=== PATIENT | female | born 2000 | race Caucasian/White ===

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

== ENCOUNTER 2021-02-28 12:05 | Outpatient (CLI) | payer MEDICAID ==
[~2021-02-28] VITALS: Ht 157.5 cm; Wt 102.6 kg
[2021-02-28 12:40] LABS: BILIRUBIN,URINE NEGATIVE (NEGATIVE); CLARITY,URINE CLEAR; COLOR,URINE YELLOW; GLUCOSE, URINE (UA) NEGATIVE (NEGATIVE); KETONES,URINE NEGATIVE (NEGATIVE); LEUKOCYTE ESTERASE ,URINE NEGATIVE (NEGATIVE); NITRITE,URINE NEGATIVE (NEGATIVE); PROTEIN,URINE NEGATIVE (NEGATIVE)
[2021-02-28 12:47] LABS: BACTERIA,URINE FEW /HPF; WBC,URINE 0-2 /HPF
[2021-02-28] MEDS ORDERED: NS IV 1000 ML 0 ML ONE (13:09)
[2021-02-28 13:10] VITALS: BP 121/74
[2021-02-28] MEDS ORDERED: NS IV 1000 ML 1,000 ML IV SCH (13:15)
[2021-02-28 13:40] LABS: BASOPHILS % (AUTO) 0 % (0-10); EOSINOPHILS # (AUTO) 0.1 10^3/uL (0.0-0.3); EOSINOPHILS % (AUTO) 2 % (0-10); HEMATOCRIT 35 % (35-52); HEMOGLOBIN 11.1 g/dL (11.5-16.0); LYMPHOCYTES # (AUTO) 1.5 10^3/uL (1.0-4.0); LYMPHOCYTES % (AUTO) 18 % (12-44); MEAN CORPUSCULAR HEMOGLOBIN 27 pg (25-34); MEAN CORPUSCULAR HGB CONC 32 g/dL (32-36); MEAN CORPUSCULAR VOLUME 82 fL (80-99); MEAN PLATELET VOLUME 10.7 fL (9.0-12.2); MONOCYTES # (AUTO) 0.6 10^3/uL (0.0-1.0); MONOCYTES % (AUTO) 7 % (0-12); NEUTROPHILS # (AUTO) 5.9 10^3/uL (1.8-7.8); NEUTROPHILS % (AUTO) 73 % (42-75); PLATELET COUNT 330 10^3/uL (130-400); WHITE BLOOD COUNT 8.1 10^3/uL (4.3-11.0)
[2021-02-28 14:02] LABS: ALANINE AMINOTRANSFERASE 6 U/L (0-55); ALBUMIN 3.3 GM/DL (3.2-4.5); ALKALINE PHOSPHATASE 102 U/L (40-136); BILIRUBIN,TOTAL 0.2 MG/DL (0.1-1.0); BUN/CREATININE RATIO 7; CALCIUM 9.2 MG/DL (8.5-10.1); CARBON DIOXIDE 19 MMOL/L (21-32); CHLORIDE 106 MMOL/L (98-107); CREATININE SERUM 0.55 MG/DL (0.60-1.30); GFR ESTIMATED > 60; GLUCOSE 91 MG/DL (70-105); SODIUM 135 MMOL/L (135-145); TOTAL PROTEIN 7.1 GM/DL (6.4-8.2)
[2021-02-28 15:10] VITALS: BP 120/69
[2021-02-28] MEDS ORDERED: PREN-8 PO (15:50)
[2021-02-28] MEDS ORDERED: FERR-65 PO (15:50)
[2021-02-28] MEDS ORDERED: NS IV 1000 ML 1,000 ML ONE (19:09)
[2021-02-28 19:13] VITALS: BP 130/64
--- NOTE | 2021-03-03 08:44 | Physician Query-Final Dx ---
BILL LYON 03/03/21 0844: Clinic Account Progress/Dx Physician Query: Please give diagnosis Please include # weeks gestation Date of Service Feb 28, 2021 at 12:05 APRIS GUERIN DO 03/04/21 1526: Clinic Account Progress/Dx DIAGNOSIS: Diagnosis 30 week IUP Gastroenteritis BILL LYON March 03, 2021 08:44 PARIS GUERIN DO March 04, 2021 15:26
== END 2021-02-28 15:58 | disposition home or self-care (01) ==
LOC: WSo 12:05 → LDRP 12:07 → WSo 15:58
PROVIDERS: ATTEND Obstetrics & Gynecology
DX: Z34.93 Encounter for supervision of normal pregnancy, unspecified, third trimester (principal); Z3A.30 30 weeks gestation of pregnancy
CPT/HCPCS: 36415; 80053; 81000; 85025; 96360; 99213

== ENCOUNTER 2021-03-21 17:14 | Outpatient (CLI) | payer MEDICAID ==
[~2021-03-21] VITALS: Ht 157.5 cm; Wt 106.9 kg
[~2021-03-21 17:14] MED LIST changes: +FERR-65 PO; +PREN-8 PO
[2021-03-21 17:50] VITALS: BP 129/71
[2021-03-21 18:02] LABS: BILIRUBIN,URINE NEGATIVE (NEGATIVE); CLARITY,URINE CLEAR; COLOR,URINE YELLOW; GLUCOSE, URINE (UA) NEGATIVE (NEGATIVE); KETONES,URINE NEGATIVE (NEGATIVE); LEUKOCYTE ESTERASE ,URINE NEGATIVE (NEGATIVE); NITRITE,URINE NEGATIVE (NEGATIVE); PROTEIN,URINE NEGATIVE (NEGATIVE)
[2021-03-21 18:09] LABS: BACTERIA,URINE TRACE /HPF
[2021-03-21 18:20] LABS: URINE CREATININE FOR RATIO 32 MG/DL (30-125); URINE PROTEIN FOR RATIO ONLY < 6 MG/DL (6-12)
[2021-03-21 18:33] VITALS: BP 129/71
[2021-03-21 18:49] LABS: BASOPHILS % (AUTO) 0 % (0-10); EOSINOPHILS # (AUTO) 0.1 10^3/uL (0.0-0.3); EOSINOPHILS % (AUTO) 1 % (0-10); HEMATOCRIT 31 % (35-52); LYMPHOCYTES # (AUTO) 1.5 10^3/uL (1.0-4.0); LYMPHOCYTES % (AUTO) 17 % (12-44); MEAN CORPUSCULAR HEMOGLOBIN 26 pg (25-34); MEAN CORPUSCULAR HGB CONC 32 g/dL (32-36); MEAN CORPUSCULAR VOLUME 81 fL (80-99); MEAN PLATELET VOLUME 11.1 fL (9.0-12.2); MONOCYTES # (AUTO) 0.6 10^3/uL (0.0-1.0); MONOCYTES % (AUTO) 7 % (0-12); NEUTROPHILS # (AUTO) 6.9 10^3/uL (1.8-7.8); NEUTROPHILS % (AUTO) 75 % (42-75); PLATELET COUNT 250 10^3/uL (130-400); WHITE BLOOD COUNT 9.3 10^3/uL (4.3-11.0)
[2021-03-21 19:01] LABS: ALBUMIN 3.3 GM/DL (3.2-4.5); CHLORIDE 108 MMOL/L (98-107); POTASSIUM 3.7 MMOL/L (3.6-5.0); SODIUM 137 MMOL/L (135-145)
[2021-03-21 19:02] LABS: CALCIUM 9.3 MG/DL (8.5-10.1)
[2021-03-21 19:03] LABS: GLUCOSE 76 MG/DL (70-105); TOTAL PROTEIN 6.6 GM/DL (6.4-8.2)
[2021-03-21 19:04] LABS: CARBON DIOXIDE 17 MMOL/L (21-32)
[2021-03-21 19:05] LABS: BILIRUBIN,TOTAL 0.3 MG/DL (0.1-1.0)
[2021-03-21 19:07] LABS: ALKALINE PHOSPHATASE 114 U/L (40-136); CREATININE SERUM 0.57 MG/DL (0.60-1.30); GFR ESTIMATED > 60
[2021-03-21 19:08] LABS: BUN/CREATININE RATIO 12
[2021-03-21 19:10] LABS: ALANINE AMINOTRANSFERASE 6 U/L (0-55); URIC ACID 3.4 MG/DL (2.6-7.2)
[2021-03-21 19:13] LABS: BAND NEUTROPHILS 0 %; BASOPHILS % (MANUAL) 0 %; EOSINOPHILS % (MANUAL) 2 %; LYMPHOCYTES % (MANUAL) 20 %; MONOCYTES % (MANUAL) 1 %; NEUTROPHILS % (MANUAL) 77 %; RBC MORPH NORMAL
[2021-03-21 19:40] VITALS: BP 115/68
--- NOTE | 2021-03-24 08:01 | Physician Query-Final Dx ---
BILL LYON 03/24/21 0801: Clinic Account Progress/Dx Physician Query: Please give diagnosis Please include # weeks gestation Date of Service March 21, 2021 at 17:14 YURIY CRUZ MD 03/24/21 1017: Clinic Account Progress/Dx DIAGNOSIS: Diagnosis False labor at 33 weeks gestation BILL LYON March 24, 2021 08:01 YURIY CRUZ MD March 24, 2021 10:17
== END 2021-03-21 19:50 | disposition home or self-care (01) ==
LOC: WSo 17:14 → LDRP 17:15 → WSo 19:50
PROVIDERS: ATTEND Obstetrics & Gynecology
DX: O47.03 False labor before 37 completed weeks of gestation, third trimester (principal); Z3A.33 33 weeks gestation of pregnancy
CPT/HCPCS: 80053; 81000; 82570; 83615; 84156; 84550; 85007; 85027; G0463; 36415; 99213

== ENCOUNTER 2021-03-30 21:03 | Emergency (ER) | payer MEDICAID ==
[~2021-03-30] VITALS: Ht 158 cm; Wt 106.7 kg
[2021-03-30 21:08] VITALS: BP 135/81
[2021-03-30] MEDS ORDERED: GLYB1.253 (21:13)
--- NOTE | 2021-03-30 21:37 | ED General ---
General Chief Complaint: Dental Problems/Pain Stated Complaint: RIGHT SIDE FACIAL PAIN Nursing Triage Note: right sided dental pain x4 days after filling fell out. Nursing Sepsis Screen: No Definite Risk Source of Information: Patient Exam Limitations: No Limitations (MARIANA ROY STUDENT) History of Present Illness Date Seen by Provider: March 30, 2021 Time Seen by Provider: 21:15 Initial Comments Pt presents to ED via POV with complaint of tooth pain. She states that it began 4 days ago, originates at the 2nd upper molar, rates it 10/10, throbbing in character, and says that the pain has been progressively moving up the side of her face since it began. She states her filling in that tooth fell out a year ago and hasn't followed up with her dentist yet, but is planning on contacting him next week. She has tried Orajel and took 1500mg Tylenol prior to arrival with no relief. She is [address]mos [address] sees Dr. Navas for obstetric care. She denies other symptoms of chest pain, SOB, fevers, chills, N/V. Timing/Duration: 3-4 Days Severity: Moderate Modifying Factors: improves with Medication (Orajel and Tylenol with no relief) Associated Systoms: No Chest Pain, No Fever/Chills, No Headaches, No Terry sea/Vomiting, No Shortness of Air (MARIANA ROY STUDENT) Allergies and Home Medications Allergies Coded Allergies: Penicillins (Verified Allergy, Severe, Anaphylaxis, 03/21/21) Patient Home Medication List Home Medication List Reviewed: Yes (MARIANA ROY STUDENT) Review of Systems Review of Systems Constitutional: No chills, No fever EENTM: dental problems (pain in R maxilla that radiates up the side of her face); No hearing loss, No vision loss Respiratory: No cough, No short of breath Cardiovascular: No chest pain, No edema, No palpitations Gastrointestinal: No abdominal pain; constipation; No diarrhea, No nausea, No vomiting Genitourinary: No dysuria, No hematuria : Yes (8mos gestation ) Musculoskeletal: No back pain, No joint pain, No muscle pain Skin: No change in color, No rash Psychiatric/Neurological: Denies Headache, Denies Numbness, Denies Paresthesia, Denies Tingling, Denies Weakness (MARIANA ROY) All Other Systems Reviewed Negative Unless Noted: Yes (MARIANA ROY) Past Mdliiuu-Djhtch-Gilrub Hx Patient Social History Alcohol Use: Denies Use Drug of Choice: denies Smoking Status: Never a Smoker 2nd Hand Smoke Exposure: No Recent Infectious Disease Expo: No Recent Hopitalizations: No Alcohol Use?: No (MARIANA ROY) Immunizations Up To Date Tetanus Booster (TDap): Unknown PED Vaccines UTD: Yes (MARIANA ROY) Seasonal Allergies Seasonal Allergies: No (MARIANA ROY) Past Medical History Surgeries: No Respiratory: No Cardiac: No Neurological: No : Yes Last Menstrual Period: Jul 20, 2020 Genitourinary: No Gastrointestinal: No Musculoskeletal: No Endocrine: No HEENT: No Cancer: No Psychosocial: Yes PTSD Integumentary: No Blood Disorders: No (MARIANA ROY) Family Medical History Cancer (MARIANA ROY) Physical Exam Vital Signs Vital Signs - First Documented 03/30/21 21:08 Temp 36.6 Pulse 88 Resp 18 B/P (MAP) 135/81 (99) Pulse Ox 99 O2 Delivery Room Air (GARY KEANE) Vital Signs Capillary Refill : Less Than 3 Seconds (MARIANA ROY) Height, Weight, BMI Height: 5'1.00" Weight: 170lbs. oz. 77.928868ve; 42.00 BMI Method:Stated General Appearance: No Apparent Distress, WD/WN Eyes: Bilateral Eye Normal Inspection, Bilateral Eye PERRL, Bilateral Eye EOMI HEENT: PERRL/EOMI, TMs Normal, Normal ENT Inspection, Pharynx Normal, Moist Mucous Membranes Neck: Full Range of Motion, Normal Inspection, Non Tender, Supple Respiratory: Chest Non Tender, Lungs Clear, Normal Breath Sounds, No Accessory Muscle Use, No Respiratory Distress Cardiovascular: Regular Rate, Rhythm, No Edema, Normal Peripheral Pulses Gastrointestinal: Normal Bowel Sounds, Non Tender, Soft Rectal: Deferred Back: Normal Inspection, No CVA Tenderness, No Vertebral Tenderness Extremity: Normal Capillary Refill, Normal Inspection, Normal Range of Motion, Non Tender Neurologic/Psychiatric: Alert, Oriented x3, No Motor/Sensory Deficits, Normal Mood/Affect Skin: Normal Color, Warm/Dry Lymphatic: No Adenopathy (MARIANA ROY STUDENT) Progress/Results/Core Measures Suspected Sepsis Recent Fever Within 48 Hours: No Infection Criteria Present: None New/Unexplained Altered Menta: No Sepsis Screen: No Definite Risk SIRS Temperature: Pulse: 88 Respiratory Rate: 18 Blood Pressure 135 /81 Mean: 99 (MARIANA ROY STUDENT) Results/Orders My Orders Orders - GARY KEANE Lidocaine 2% Viscous 15 Ml (Xylocaine Vi (03/30/21 21:45) Clindamycin Capsule (Cleocin Capsule) (03/30/21 21:45) (GARY KEANE) Medications Given in ED Current Medications Medications Dose Ordered Sig/Mikael Route Start Time Stop Time Status Last Admin Dose Admin Clindamycin HCl 450 mg ONCE ONCE PO 03/30/21 21:45 03/30/21 21:46 03/30/21 21:42 450 MG Lidocaine HCl 5 ml ONCE ONCE PO 03/30/21 21:45 03/30/21 21:46 03/30/21 21:42 5 ML (GARY KEANE) Vital Signs/I&O 03/30/21 21:08 Temp 36.6 Pulse 88 Resp 18 B/P (MAP) 135/81 (99) Pulse Ox 99 O2 Delivery Room Air (GARY KEANE) Vital Signs/I&O Capillary Refill : Less Than 3 Seconds (MARIANA ROY STUDENT) Blood Pressure Mean: 99 Progress Note : Time: 21:46 Progress Note I attest that I saw this patient alongside the medical student and agree with his documented history, physical exam and review of systems except as otherwise noted. Clindamycin and viscous lidocaine. Counseled on appropriate use of Tylenol. Heat and ice. Patient has already reached out to her dentist and we have encouraged her to keep trying to get in with them. (GARY KEANE) Departure Impression Primary Impression: Dental abscess Additional Impression: Qualified Codes: Z34.90 - Encounter for supervision of normal , unspecified, unspecified trimester Disposition: 01 HOME, SELF-CARE Condition: Stable Departure-Patient Inst. Decision time for Depature: 21:47 (GARY KEANE) Referrals: [facility][1[facility] (PCP/Family) Primary Care Physician Patient Instructions: Tooth Abscess (DC) Add. Discharge Instructions: Heat and ice as necessary for pain. Stick to a liquid diet. Tylenol 1000 mg every 8 hours as necessary for pain. Clindamycin 3 capsules 3 times a day with food for the next week. I recommend probiotics 1 capsule twice a day to prevent the diarrhea sometimes associated with antibiotics. Continue to work on getting in with your dentist. 5 mL of viscous lidocaine on gauze applied directly to the tooth every 4-6 hours as necessary for pain All discharge instructions reviewed with patient and/or family. Voiced understanding. Scripts [viscous lidocaine 2%] 2% No Conflict Check 5 ML DT Q4H PRN for PAIN-BREAKTHROUGH, #100 ML 0 Refills Prov: GARY KEANE 03/30/21 Clindamycin HCl (Clindamycin HCl) 150 Mg Capsule 450 MG PO TID for 7 Days, #63 CAP 0 Refills Prov: GARY KEANE 03/30/21 Work/School Note: Work Release Form Date Seen in the Emergency Department: March 30, 2021 Return to Work: March 31, 2021 Restrictions: No Restrictions MARIANA ROY MED STUDENT March 30, 2021 21:37 GARY KEANE March 30, 2021 21:50
[2021-03-30] MEDS ORDERED: LIDOCAINE 2% VISCOUS 15 ML UDC PO ONE (21:45)
[2021-03-30] MEDS ORDERED: CLINDAMYCIN 150 MG (CLEOCIN) CAP PO ONE (21:45)
[2021-03-30] MEDS ORDERED: CLIN150C18 PO (21:50)
[2021-03-30] MEDS ORDERED: viscous lidocaine 2% DT (21:50)
== END 2021-03-30 21:57 | disposition home or self-care (01) ==
LOC: EDUNIT# 21:03 → ER 21:05
DX: O99.613 Diseases of the digestive system complicating pregnancy, third trimester (principal); K04.7 Periapical abscess without sinus; Z3A.37 37 weeks gestation of pregnancy
CPT/HCPCS: 99283

== ENCOUNTER → 2021-04-11 | Outpatient (CLI) | payer MEDICAID ==
[~2021-04-11] MED LIST changes: +CLIN150C18 PO; +GLYB1.253; +[UNRECOGNIZED DRUG - OTHER] PO; +antibiotic PO; +viscous lidocaine 2% DT
--- NOTE | 2021-04-11 16:17 | Diagnostic Imaging Report ---
INDICATION: Gestational diabetes. TECHNIQUE: Multiple real-time grayscale images were obtained over the gravid uterus. COMPARISON: 12/26/2020 FINDINGS: A single live intrauterine fetus seen measuring 36 weeks 4 days in size with heart rate 156 bpm. EDC was 05/05/2021, which is within a few days of expected from previous examination. The fetus is in cephalic presentation. Placenta is anterior with no evidence of previa. Amniotic fluid index is normal at 12.1 cm. A full survey was not performed at this time. Maternal adnexa could not be visualized. Sonographic estimate age: 36 weeks 4 days. Sonographic estimated date of delivery: 05/05/2021. heart rate: 156 beats per minute. number: 1 of 1. biophysical profile was also performed. The fetus scored 2 out of 2 and movement and posture and tone and amniotic fluid volume. Fetus scored 0 of 2 in breathing. IMPRESSION: Single live intrauterine fetus measuring 36 weeks 4 days in size with appropriate growth compared to the previous study. There was no detectable abnormality. biophysical profile score was 6 out of 8, suggest follow-up as clinically warranted. Dictated by: Dictated on workstation # [id number]
== END ==
LOC: RAD 13:30
PROVIDERS: ATTEND Nurse Practitioner Women's Health
DX: O24.419 Gestational diabetes mellitus in pregnancy, unspecified control (principal); Z3A.36 36 weeks gestation of pregnancy
CPT/HCPCS: 76805; 76819

== ENCOUNTER → 2021-04-16 | Outpatient (CLI) | payer MEDICAID | LOC: LABNPT 09:41 | PROVIDERS: ATTEND Obstetrics & Gynecology | DX: O13.9 Gestational [pregnancy-induced] hypertension without significant proteinuria, unspecified trimester (principal); Z3A.00 Weeks of gestation of pregnancy not specified | CPT/HCPCS: 82570; 84156 ==

== ENCOUNTER 2021-04-19 17:14 | Outpatient (CLI) | payer MEDICAID ==
[~2021-04-19] VITALS: Ht 157.5 cm; Wt 107.1 kg
[2021-04-19 17:31] VITALS: BP 128/89
[2021-04-19 17:45] VITALS: BP 128/89
[2021-04-19 17:46] LABS: BILIRUBIN,URINE NEGATIVE (NEGATIVE); CLARITY,URINE CLEAR; COLOR,URINE YELLOW; GLUCOSE, URINE (UA) NEGATIVE (NEGATIVE); KETONES,URINE NEGATIVE (NEGATIVE); LEUKOCYTE ESTERASE ,URINE NEGATIVE (NEGATIVE); NITRITE,URINE NEGATIVE (NEGATIVE); PROTEIN,URINE NEGATIVE (NEGATIVE)
[2021-04-19 17:52] VITALS: BP 130/76
[2021-04-19 17:55] VITALS: BP 128/89
[2021-04-19 18:00] LABS: BACTERIA,URINE TRACE /HPF; SQUAMOUS EPITHELIAL CELL,UR 0-2 /HPF
[2021-04-19 18:12] VITALS: BP 120/89
[2021-04-19 18:32] VITALS: BP 120/89
--- NOTE | 2021-04-21 07:58 | Physician Query-Final Dx ---
Clinic Account Progress/Dx Physician Query: Please give diagnosis Please include # weeks gestation Date of Service Apr 19, 2021 at 17:14 BILL LYON Apr 21, 2021 07:58
== END 2021-04-19 18:32 | disposition home or self-care (01) ==
LOC: WSo 17:14 → LDRP 17:14 → WSo 18:32
PROVIDERS: ATTEND Obstetrics & Gynecology
DX: Z34.93 Encounter for supervision of normal pregnancy, unspecified, third trimester (principal); Z3A.38 38 weeks gestation of pregnancy
CPT/HCPCS: 81000

== ENCOUNTER 2021-04-23 06:21 | Inpatient (IN) | payer MEDICAID ==
[~2021-04-23] VITALS: Ht 157.5 cm; Wt 109.5 kg
[2021-04-23] VITALS (51 sets, daily range): BP systolic 34–160; BP diastolic 55–113
[2021-04-23] MEDS ORDERED: D5 LR IV SOLUTION 1,000 ML IV SCH (06:45)
--- NOTE | 2021-04-23 07:14 | History & Physical-OB/GYN ---
LUIS A SANTORO MED STUDENT 04/23/21 7:14am: OB - Chief Complaint & HPI Date/Time Date of Admission: Date of Admission: Apr 23, 2021 at 06:21 Time Seen by a Provider: 06:50 Chief Complaint/History OB-Reason for Admission/Chief: Induction of Labor Hx : 1 Hx Para: 0 Hx Last Menstrual Period: 07/20/2020 Estimated Date of Conception: 05/03/2021 Expected Date of Delivery: Apr 23, 2021 Gestational Age in Weeks: 38 Gestational Age in Days: 4 Indication for induction: medical complication (A2 GDM, uncontrolled) History of Labs A+, antibody negative, HIV nonreactive, hepatitis B negative, group B strep negative, rubella immune. Initial Hgb 12.6 with followup 10.8. Allergies and Home Medications Allergies Coded Allergies: Penicillins (Verified Allergy, Severe, Anaphylaxis, 03/21/21) Home Medications [diabetic medicine] , PO DAILY, (Reported) Patient Home Medication List Home Medication List Reviewed: Yes OB - History Hx of Present Care: Yes Ultrasounds: Normal mid trimester US Obstetrical Complications: Gestational Diabetes Medical Complications: None Information Induced Hypertension: No Maternal Gestational Diabetes: Yes Hemorrhage: No Obstetrical History Hx : 1 Hx Para: 0 Patient Past Medical History GDM Social History/Family History Alcohol Use: Denies Use Recreational Drug Use: No Smoking Cessation: Never smoker 2nd Hand Smoke Exposure: No Significant Family Hx + HTN mom + DM mom + pre-eclampsia mom and maternal aunt + goldenhar syndrome brother Immunizations Hepatitis A: No Hepatitis B: No Tetanus Booster (TDap): Unknown Rubella: immune RPR/VDRL: Negative GBS Status: Negative HBsAG: Negative OB - Admission Exam Physical Exam Vitals: Vital Signs 04/23/21 06:51 Temp 36.7 Pulse 89 Resp 18 Pulse Ox 98 O2 Delivery Room Air HEENT: NCAT Heart: Rhythm Normal Lungs: Clear Abdomen: Gravid Extremities: Edema Membranes: Intact Heart Rate: 130's Accelerations: Accelerations Present Decelerations: No Decelerations Certified Medical Asst Variability: Average (6-25) Contractions on Admission: None OB - Assessment/Plan/Diagnosis Assessment Assessment: induction of labor Admission Dx A2 GDM, uncontrolled Admission Status: Inpatient Order (span 2 midnights) Reason for Inpatient Admission: IOL Plan Plan: Induction Induction Method: per Pitocin Protocol Copy Copies To 1: PARIS NAVAS DO Supervisory-Addendum Brief Verification & Attestation Participated in pt care: history, physical Personally performed: exam, history Care discussed with: Medical Student Procedures: n/a Luis A Santoro, PARIS CHRISTIANSEN DO 04/23/21 2:15pm: OB - Chief Complaint & HPI Date/Time Date seen by a Provider: Apr 23, 2021 Allergies and Home Medications Allergies Coded Allergies: Penicillins (Verified Allergy, Severe, Anaphylaxis, 03/21/21) Home Medications [diabetic medicine] , PO DAILY, (Reported) OB - Assessment/Plan/Diagnosis Assessment Admission Dx 20 yo @ 38 weeks GDMA2 Teen GBS neg Copy Copies To 1: PARIS NAVAS DO Supervisory-Addendum Brief Verification & Attestation Verification and Attestation of Medical Student E/M Service A medical student performed and documented this service in my presence. I revi ewed and verified all information documented by the medical student and made modifications to such information, when appropriate. I personally performed the physical exam and medical decision making. Paris Navas, Apr 23, 2021,14:15 LUIS A SANTORO MED STUDENT Apr 23, 2021 7:14 am PARIS NAVAS DO Apr 23, 2021 2:15 pm
[2021-04-23 07:18] LABS: BASOPHILS % (AUTO) 0 % (0-10); EOSINOPHILS # (AUTO) 0.2 10^3/uL (0.0-0.3); EOSINOPHILS % (AUTO) 2 % (0-10); HEMATOCRIT 32 % (35-52); HEMOGLOBIN 9.9 g/dL (11.5-16.0); LYMPHOCYTES # (AUTO) 1.7 10^3/uL (1.0-4.0); LYMPHOCYTES % (AUTO) 19 % (12-44); MEAN CORPUSCULAR HEMOGLOBIN 25 pg (25-34); MEAN CORPUSCULAR HGB CONC 31 g/dL (32-36); MEAN CORPUSCULAR VOLUME 81 fL (80-99); MEAN PLATELET VOLUME 11.8 fL (9.0-12.2); MONOCYTES # (AUTO) 0.6 10^3/uL (0.0-1.0); MONOCYTES % (AUTO) 7 % (0-12); NEUTROPHILS # (AUTO) 6.3 10^3/uL (1.8-7.8); NEUTROPHILS % (AUTO) 71 % (42-75); PLATELET COUNT 289 10^3/uL (130-400); WHITE BLOOD COUNT 8.8 10^3/uL (4.3-11.0)
[2021-04-23] MEDS ORDERED: OXYTOCIN PRE-MIX DRIP 500 ML IV ONE (07:38)
[2021-04-23] MEDS: NS IV 1000 ML 1,000 ML IV SCH ×3 (07:45→20:51)
[2021-04-23 07:51] LABS: CARBON DIOXIDE 17 MMOL/L (21-32); CHLORIDE 108 MMOL/L (98-107); POTASSIUM 4.1 MMOL/L (3.6-5.0); SODIUM 135 MMOL/L (135-145)
[2021-04-23 07:52] LABS: ALANINE AMINOTRANSFERASE 7 U/L (0-55); ALBUMIN 3.1 GM/DL (3.2-4.5); ALKALINE PHOSPHATASE 191 U/L (40-136); BILIRUBIN,TOTAL 0.2 MG/DL (0.1-1.0); BUN/CREATININE RATIO 12; CALCIUM 8.9 MG/DL (8.5-10.1); GFR ESTIMATED > 60; GLUCOSE 96 MG/DL (70-105); TOTAL PROTEIN 6.4 GM/DL (6.4-8.2)
[2021-04-23] MEDS ORDERED: OXYTOCIN PRE-MIX DRIP 500 ML IV SCH (08:00)
[2021-04-23] MEDS ORDERED: CALCIUM CARBONATE 500 MG (TUMS) TAB.CHEW PO PRN (08:00)
[2021-04-23] MEDS ORDERED: HYDROmorphone 2 MG/ML VIAL (DILAUDID) IV ONE ×2 (10:00→11:30)
[2021-04-23] MEDS ORDERED: fentaNYL 2 mcg/ml BUPIVA 0.125 100 ML ONE (11:24)
[2021-04-23] MEDS ORDERED: HYDROmorphone 2 MG/ML VIAL (DILAUDID) ONE (11:30)
[2021-04-23] MEDS ORDERED: fentaNYL INJ 100 MCG/2 ML AMP ONE (12:21)
[2021-04-23] MEDS ORDERED: ONDANSETRON 4 MG/2 ML (SDV) Z0FRAN IV PRN (12:30)
[2021-04-23] MEDS ORDERED: EPIDURAL (fentaNYL 2 MCG/ML BUPIVA 0.125%)100 ML BAG EPI PRN (12:30)
[2021-04-23] MEDS ORDERED: NALOXONE 0.4 MG/ML 1 ML (NARCAN) VIAL IV PRN ×2 (12:30)
[2021-04-23] MEDS ORDERED: METOCLOPRAMIDE INJ 10 MG/2 ML (REGLAN) IV PRN (12:30)
[2021-04-23] MEDS ORDERED: LACTATED RINGERS 1,000 ML IV ONE (12:30)
[2021-04-23] MEDS ORDERED: diphenhydrAMINE 50 MG/ML INJ (BENADRYL) IV PRN (12:30)
[2021-04-23] MEDS ORDERED: LIDOCAINE/EPI 2% 1:200,00 (XYLOCAINE) 20 ML VIAL ONE (15:40)
[2021-04-23] MEDS: OXYTOCIN PRE-MIX DRIP 500 ML IV SCH ×2 (16:45→20:51)
[2021-04-23] MEDS ORDERED: BENZOCAINE/MENTHOL (DERMOPLAST) 56 ML CAN TP PRN (17:30)
[2021-04-23] MEDS ORDERED: TETANUS,DIPTH,PERTUSS P/F (BOOSTRIX) 0.5 ML VIAL IM ONE (17:30)
[2021-04-23] MEDS ORDERED: HYDROcodone/APAP 5 MG/325 MG (LORTAB) TAB PO PRN (17:30)
[2021-04-23] MEDS ORDERED: WITCH HAZEL(TUCKS) 40 EA JAR TOP PRN (17:30)
[2021-04-23] MEDS ORDERED: MEASLES,MUMPS,RUBELLA 1 EA INJ SQ ONE (17:30)
[2021-04-23] MEDS ORDERED: DIBUCAINE 1% OINTMENT 30 GM TUBE TOP PRN (17:30)
--- NOTE | 2021-04-23 18:01 | OB Labor & Delivery Record ---
L&D History Date of Service Date of Service: Apr 23, 2021 History Expected Date of Delivery: May 03, 2021 Gestational Age in Weeks: 38 Hx : 1 Hx Para: 0 Complications Events: Gestational Diabetes Operative Indications (Cesarea: N/A-Vaginal Delivery Intrapartal Events: None L&D Stage1 Stage One Onset of Labor - Date: Apr 23, 2021 Monitors and Tracing Monitor Mode: External Heart Rate: 140 Monitor Accelerations: Uniform Monitor Decelerations: Variable Station: 0 Usp Variability: Average (6-10) Short Term Variability: Present Presentation: Vertex Vital Signs VS - Last 72 Hours, by Label 04/23/21 04/23/21 04/23/21 04/23/21 06:51 07:50 08:05 08:20 Temp 36.7 36.8 Pulse 89 85 90 85 Resp 18 18 18 18 B/P (MAP) 126/83 (97) 135/87 (103) 138/93 (108) Pulse Ox 98 O2 Delivery Room Air Room Air Room Air Room Air 04/23/21 04/23/21 04/23/21 04/23/21 08:35 08:50 09:05 09:20 Pulse 90 84 86 85 Resp 18 18 18 18 B/P (MAP) 135/87 (103) 134/83 (100) 125/64 (84) 130/78 (95) O2 Delivery Room Air Room Air Room Air Room Air 04/23/21 04/23/21 04/23/21 04/23/21 09:35 09:50 10:05 10:20 Pulse 86 94 105 88 Resp 18 18 18 18 B/P (MAP) 130/78 (95) 148/97 (114) 131/79 (96) 128/79 (95) O2 Delivery Room Air Room Air Room Air Room Air 04/23/21 04/23/21 04/23/21 04/23/21 10:35 10:50 11:05 11:30 Temp 37.0 Pulse 86 88 90 92 Resp 18 18 18 18 B/P (MAP) 126/99 (108) 138/63 (88) 140/67 (91) 160/113 (129) O2 Delivery Room Air Room Air Room Air Room Air 04/23/21 04/23/21 04/23/21 04/23/21 11:57 12:03 12:05 12:12 Pulse 116 103 101 85 Resp 18 18 18 18 B/P (MAP) 140/87 (104) 146/87 (106) 147/89 (108) 139/82 (101) Pulse Ox 99 98 97 97 O2 Delivery Room Air Room Air Room Air Room Air 04/23/21 04/23/21 04/23/21 04/23/21 12:17 12:22 12:25 12:27 Pulse 95 98 103 109 Resp 18 18 18 18 B/P (MAP) 123/59 (80) 120/58 (78) 122/59 (80) 129/55 (79) Pulse Ox 94 97 94 96 O2 Delivery Room Air Room Air Room Air Room Air 04/23/21 04/23/21 04/23/21 04/23/21 12:31 12:34 12:37 12:44 Pulse 102 110 101 86 Resp 18 18 18 18 B/P (MAP) 129/60 (83) 131/61 (84) 131/63 (85) 121/57 (78) Pulse Ox 98 98 97 95 O2 Delivery Room Air Room Air Room Air Room Air 04/23/21 04/23/21 04/23/21 04/23/21 12:50 12:55 13:05 13:10 Pulse 90 107 122 112 Resp 18 18 18 18 B/P (MAP) 120/58 (78) 108/65 (79) 131/67 (88) 129/63 (85) Pulse Ox 95 97 97 98 O2 Delivery Room Air Room Air Room Air Room Air 04/23/21 04/23/21 04/23/21 04/23/21 13:15 13:20 13:35 13:50 Temp 36.0 Pulse 100 96 93 73 Resp 18 18 18 18 B/P (MAP) 133/57 (82) 108/56 (73) 128/64 (85) 128/61 (83) Pulse Ox 98 98 98 O2 Delivery Room Air Room Air Room Air Room Air 04/23/21 04/23/21 04/23/21 14:05 14:20 14:35 Pulse 73 93 95 Resp 18 18 18 B/P (MAP) 122/67 (85) 129/58 (81) 121/71 (88) O2 Delivery Room Air Room Air Room Air Rupture of Membranes Spontaneous Ruture of Membrane: Yes Amniotic Membrane Rupture Time: 0500 Amniotic Membrane Fluid Desc.: Clear Vaginal Bleeding Description: Normal Show Induction/Anesthesia Epidural Cath Placement - Time: 1207 Progress/Notes Patient admitted this AM for IOL due to GDMA2. She was ruptured on admission when she showed up, she was started on pitocin augmentation, received an epidural and progressed to complete and + 2 station. L&D Stage2 Stage Two Stage II Date: Apr 23, 2021 Monitors and Tracing Monitor Mode: External Heart Rate: 140 Monitor Accelerations: Uniform Monitor Decelerations: Prolonged Usp Variability: Average (6-10) Short Term Variability: Present Position: Right Occiput Anterior Presentation: Vertex Cord Descript/Complications Cord Vessel Description: 3 Vessels Delivery Type Delivery Method: Spontaneous Vaginal Anterior Shoulder: Left Episiotomy/Perineal Laceration Laceraction(s)/Extensions: Yes Episiotomy Description: Right Mediolateral Degree (describe repair) RML repaired using 3-0 and 2-0 vicryl suture in usual fashion. Condition of Infant Delivery 1 minute Comment: 9 5 minute Comment: 9 Notes Live male weight pending Condition of Infant Condition of : Living Exam: No Observed Abnormalities Resuscitation Resuscitation: N/A - Spontaneous Resp L&D Stage3 Stage Three Stage III Date: Apr 23, 2021 Pictocin Pitocin Administration mu/min: 4 Pitocin ml/hr: 4 Pitocin Administration Comment: 30 mu wide open after delivery of placenta Placenta Delivery Placenta Delivery: Spontaneous Delivery Summary Summary Estimated blood loss (mL): 400 Attending at delivery: Paris Guerin DO Condition of Delivery Examined: Cervix Examined, Uterus Explored Post Hemorrhage: No Condition of Mother stable Condition of (s) stable PARIS GUERIN DO Apr 23, 2021 18:01
--- NOTE | 2021-04-23 18:02 | Discharge Inst-Women's Service ---
Discharge Inst-Women's Serv Depart Medication/Instructions New, Converted or Re-Newed RX: RX on Chart Problems Reviewed?: Yes Consults/Follow Up Additional Follow Up: Yes Activity Activity: Activity as Tolerated Driving Instructions: No Driving for 1 Week NO SMOKING: NO SMOKING Nothing Inside Vagina: No Douching, No [place], No Tampons Diet Discharge Diet: No Restrictions Symptoms to Report to : Bleeding Excessive, Pain Increased, Fever Over 101 Degrees F, Vaginal Bleeding Increase, Questions/Concerns For Any Problems or Questions: Contact Your Physician PARIS GUERIN DO Apr 23, 2021 18:02
[2021-04-23] MEDS ORDERED: ACHD5005 PO (18:04)
[2021-04-23] MEDS ORDERED: DIBU30OI TOP (18:04)
[2021-04-23] MEDS ORDERED: IBUP-844 PO (18:04)
[2021-04-23] MEDS ORDERED: DCS100C PO (18:04)
[2021-04-23] MEDS ORDERED: FERR325T24 PO (18:04)
[2021-04-23] MEDS: IBUPROFEN 600 MG (MOTRIN) TAB PO SCH ×2 (18:14→23:11)
[2021-04-23] MEDS: DOCUSATE SODIUM 100 MG (COLACE) CAP PO SCH (19:52)
[2021-04-23] MEDS: CATHETER FLUSH 10 ML SYR IV SCH ×2 (20:24→20:51)
[2021-04-23] MEDS ORDERED: CATHETER FLUSH 10 ML SYR IV SCH (22:00)
[2021-04-24 05:17] LABS: BASOPHILS % (AUTO) 0 % (0-10); HEMOGLOBIN 8.5 g/dL (11.5-16.0); MEAN PLATELET VOLUME 12.1 fL (9.0-12.2)
[2021-04-24 05:19] LABS: EOSINOPHILS # (AUTO) 0.1 10^3/uL (0.0-0.3); EOSINOPHILS % (AUTO) 1 % (0-10); HEMATOCRIT 29 % (35-52); LYMPHOCYTES % (AUTO) 19 % (12-44); MEAN CORPUSCULAR HEMOGLOBIN 25 pg (25-34); MEAN CORPUSCULAR HGB CONC 30 g/dL (32-36); MEAN CORPUSCULAR VOLUME 85 fL (80-99); MONOCYTES # (AUTO) 0.7 10^3/uL (0.0-1.0); MONOCYTES % (AUTO) 6 % (0-12); NEUTROPHILS % (AUTO) 74 % (42-75); PLATELET COUNT 165 10^3/uL (130-400); WHITE BLOOD COUNT 10.9 10^3/uL (4.3-11.0)
[2021-04-24] MEDS: IBUPROFEN 600 MG (MOTRIN) TAB PO SCH ×3 (06:08→18:21)
[2021-04-24 06:18] VITALS: BP 135/84
--- NOTE | 2021-04-24 06:39 | Progress Note ---
LUIS A PNIO MED STUDENT 04/24/21 0639: Subjective Time Seen by a Provider: 06:34 Subjective/Events-last exam Carlos Moran is a 20 year old G1 now P1 who presented to L&D yesterday for a scheduled IOL. Past medical history includes A2 GDM, uncontrolled. The patient is experiencing some cramping but pain meds are keeping it controlled. Patient has been attempting to breastfeed every 2 hours. Patient is able to ambulate to the bathroom and has noted scant lochia. Patient has not had a BM yet but took a stool softener last night. Review of Systems General: No Chills, No Night Sweats, No Fatigue, No Malaise, No Appetite, No Other HEENT: No Head Aches, No Visual Changes, No Eye Pain, No Ear Pain, No Dysphasia, No Sinus Congestion, No Post Nasal Drip, No Sore Throat, No Other Pulmonary: No Dyspnea, No Cough, No Pleuritic Chest Pain, No Other Cardiovascular: No: Chest Pain, Palpitations, Orthopnea, Paroxysmal Noc. Dyspnea, Edema, Lt Headedness, Other Gastrointestinal: Other (Cramping) Genitourinary: No Dysuria, No Frequency, No Incontinence, No Hematuria, No Retention, No Other Musculoskeletal: No: other, neck pain, shoulder pain, arm pain, back pain, hand pain, leg pain, foot pain Neurological: No: Weakness, Numbness, Incoordination, Change in speech, Confusion, Seizures, Other Focused Exam Respiratory: Lungs Clear, Normal Breath Sounds Cardiovascular: Regular Rate, Rhythm Skin: normal color, warm/dry Objective Exam Last Set of Vital Signs Vital Signs Date Time Temp Pulse Resp B/P (MAP) Pulse Ox O2 Delivery O2 Flow Rate FiO2 04/24/21 06:18 36.1 84 18 135/84 (101) 97 Room Air Capillary Refill : Less Than 3 Seconds I&O Intake and Output 04/24/21 00:00 Intake Total 2400 ml Balance 2400 ml Intake Oral 250 ml IV Total 2150 ml # Voids 1 Daily Weight Change No General: Alert, Oriented X3 HEENT: Atraumatic Lungs: Clear to Auscultation Heart: Regular Rate, Normal S1, Normal S2 Abdomen: Normal Bowel Sounds Extremities: No Clubbing, No Cyanosis Skin: No Rashes Neuro: Normal Speech Psych/Mental Status: Mental Status NL Results Lab Laboratory Tests 04/23/21 06:55: White Blood Count 8.8, Red Blood Count 3.99, Hemoglobin 9.9L, Hematocrit 32L, Mean Corpuscular Volume 81, Mean Corpuscular Hemoglobin 25, Mean Corpuscular Hemoglobin Concent 31L, Red Cell Distribution Width 14.9H, Platelet Count 289, Mean Platelet Volume 11.8, Immature Granulocyte % (Auto) 1, Neutrophils (%) (Auto) 71, Lymphocytes (%) (Auto) 19, Monocytes (%) (Auto) 7, Eosinophils (%) (Auto) 2, Basophils (%) (Auto) 0, Neutrophils # (Auto) 6.3, Lymphocytes # (Auto) 1.7, Monocytes # (Auto) 0.6, Eosinophils # (Auto) 0.2, Basophils # (Auto) 0.0, Immature Granulocyte # (Auto) 0.1, Sodium Level 135, Potassium Level 4.1, Chloride Level 108H, Carbon Dioxide Level 17L, Anion Gap 10, Blood Urea Nitrogen 7, Creatinine 0.60, Estimat Glomerular Filtration Rate > 60, BUN/Creatinine Ratio 12, Glucose Level 96, Calcium Level 8.9, Corrected Calcium 9.6, Total Bilirubin 0.2, Aspartate Amino Transf (AST/SGOT) 22, Alanine Aminotransferase (ALT/SGPT) 7, Alkaline Phosphatase 191H, Total Protein 6.4, Albumin 3.1L, Syphi lis Serology Non-Reactive 04/24/21 04:52: White Blood Count 10.9, Red Blood Count 3.41L, Hemoglobin 8.5L, Hematocrit 29L, Mean Corpuscular Volume 85, Mean Corpuscular Hemoglobin 25, Mean Corpuscular Hemoglobin Concent 30L, Red Cell Distribution Width 15.3H, Platelet Count 165, Mean Platelet Volume 12.1, Immature Granulocyte % (Auto) 1, Neutrophils (%) (Auto) 74, Lymphocytes (%) (Auto) 19, Monocytes (%) (Auto) 6, Eosinophils (%) (Auto) 1, Basophils (%) (Auto) 0, Neutrophils # (Auto) 8.0H, Lymphocytes # (Auto) 2.0, Monocytes # (Auto) 0.7, Eosinophils # (Auto) 0.1, Basophils # (Auto) 0.0, Immature Granulocyte # (Auto) 0.1, Percent Immature Platelet Fraction 7.8H Assessment/Plan Assessment/Plan Assess & Plan/Chief Complaint PP day #1 s/p Supervisory-Addendum Brief Verification & Attestation Participated in pt care: history, physical Personally performed: exam, history Care discussed with: Medical Student Procedures: n/a GHANSHYAM GUERIN DO 04/24/21 0731: Supervisory-Addendum Brief Verification & Attestation Results interpretation: Verified all documentation Verification and Attestation of Medical Student E/M Service A medical student performed and documented this service in my presence. I reviewed and verified all information documented by the medical student and made modifications to such information, when appropriate. I personally performed the physical exam and medical decision making. Ghanshyam Guerin, Apr 24, 2021,07:31 LUIS A PINO MED STUDENT Apr 24, 2021 06:39 GHANSHYAM GUERIN DO Apr 24, 2021 07:31
--- NOTE | 2021-04-24 07:27 | Postpartum Progress Note ---
Note Note Day # 1 Subjective: Patient is without complaints. Ambulating, voiding. Tolerating a regular diet without nausea or vomiting. Normal lochia. Pain is well controlled with oral pain medications. Objective: Physical Exam: General - Alert and oriented, no apparent distress Abdomen - Soft, appropriately tender to palpation, non-distended, fundus firm at umbilicus Extremities - no edema, negative Alexei's bilaterally Assessment: PPD 1 NVD Acute blood loss anemia Plan: Routine care. Encourage breast feeding. Encourage ambulation. Ferrous sulfate supplementation. Plan for discharge today or tomorrow Vitals - Labs Vital Signs - I&O Vital Signs Date Time Temp Pulse Resp B/P (MAP) Pulse Ox O2 Delivery O2 Flow Rate FiO2 04/24/21 06:18 36.1 84 18 135/84 (101) 97 Room Air 04/23/21 23:10 37.0 90 18 117/68 (84) 98 Room Air 04/23/21 19:50 97 Room Air 04/23/21 19:48 37.0 98 18 131/77 (95) 97 Room Air 04/23/21 18:05 36.5 96 18 155/88 (110) Room Air 04/23/21 17:50 98 18 125/87 (100) Room Air 04/23/21 17:35 93 18 145/88 (107) Room Air 04/23/21 17:20 100 18 129/79 (96) Room Air 04/23/21 16:35 98 18 117/67 (84) Room Air 04/23/21 16:31 109 18 117/60 (79) Room Air 04/23/21 15:35 114 18 135/92 (106) Room Air 04/23/21 15:20 101 18 137/84 (101) Room Air 04/23/21 15:05 105 18 147/84 (105) Room Air 04/23/21 14:50 104 18 129/69 (89) Room Air 04/23/21 14:35 95 18 121/71 (88) Room Air 04/23/21 14:20 93 18 129/58 (81) Room Air 04/23/21 14:05 73 18 122/67 (85) Room Air 04/23/21 13:50 36.0 73 18 128/61 (83) Room Air 04/23/21 13:35 93 18 128/64 (85) 98 Room Air 04/23/21 13:20 96 18 108/56 (73) 98 Room Air 04/23/21 13:15 100 18 133/57 (82) 98 Room Air 04/23/21 13:10 112 18 129/63 (85) 98 Room Air 04/23/21 13:05 122 18 131/67 (88) 97 Room Air 04/23/21 12:55 107 18 108/65 (79) 97 Room Air 04/23/21 12:50 90 18 120/58 (78) 95 Room Air 04/23/21 12:44 86 18 121/57 (78) 95 Room Air 04/23/21 12:37 101 18 131/63 (85) 97 Room Air 04/23/21 12:34 110 18 131/61 (84) 98 Room Air 04/23/21 12:31 102 18 129/60 (83) 98 Room Air 04/23/21 12:27 109 18 129/55 (79) 96 Room Air 04/23/21 12:25 103 18 122/59 (80) 94 Room Air 04/23/21 12:22 98 18 120/58 (78) 97 Room Air 04/23/21 12:17 95 18 123/59 (80) 94 Room Air 04/23/21 12:12 85 18 139/82 (101) 97 Room Air 04/23/21 12:05 101 18 147/89 (108) 97 Room Air 04/23/21 12:03 103 18 146/87 (106) 98 Room Air 04/23/21 11:57 116 18 140/87 (104) 99 Room Air 04/23/21 11:30 37.0 92 18 160/113 (129) Room Air 04/23/21 11:05 90 18 140/67 (91) Room Air 04/23/21 10:50 88 18 138/63 (88) Room Air 04/23/21 10:35 86 18 126/99 (108) Room Air 04/23/21 10:20 88 18 128/79 (95) Room Air 04/23/21 10:05 105 18 131/79 (96) Room Air 04/23/21 09:50 94 18 148/97 (114) Room Air 04/23/21 09:35 86 18 130/78 (95) Room Air 04/23/21 09:20 85 18 130/78 (95) Room Air 04/23/21 09:05 86 18 125/64 (84) Room Air 04/23/21 08:50 84 18 134/83 (100) Room Air 04/23/21 08:35 90 18 135/87 (103) Room Air 04/23/21 08:20 85 18 138/93 (108) Room Air 04/23/21 08:05 90 18 135/87 (103) Room Air 04/23/21 07:50 36.8 85 18 126/83 (97) Room Air I & O 04/24/21 07:00 Intake Total 2400 ml Balance 2400 ml Labs Laboratory Tests 04/24/21 04:52: White Blood Count 10.9, Red Blood Count 3.41L, Hemoglobin 8.5L, Hematocrit 29L, Mean Corpuscular Volume 85, Mean Corpuscular Hemoglobin 25, Mean Corpuscular Hemoglobin Concent 30L, Red Cell Distribution Width 15.3H, Platelet Count 165, Mean Platelet Volume 12.1, Immature Granulocyte % (Auto) 1, Neutrophils (%) (Auto) 74, Lymphocytes (%) (Auto) 19, Monocytes (%) (Auto) 6, Eosinophils (%) (Auto) 1, Basophils (%) (Auto) 0, Neutrophils # (Auto) 8.0H, Lymphocytes # (Auto) 2.0, Monocytes # (Auto) 0.7, Eosinophils # (Auto) 0.1, Basophils # (Auto) 0.0, Immature Granulocyte # (Auto) 0.1, Percent Immature Platelet Fraction 7.8H PARIS GUERIN DO Apr 24, 2021 07:27
[2021-04-24] MEDS: FERROUS SULF 325 MG (IRON) TAB PO SCH (08:43)
[2021-04-24] MEDS: DOCUSATE SODIUM 100 MG (COLACE) CAP PO SCH ×2 (08:43→20:32)
[2021-04-24] MEDS: PRENATAL VITAMIN 1 EA TAB PO SCH (08:43)
[2021-04-24 08:46] VITALS: BP 125/72
[2021-04-24 12:34] VITALS: BP 114/57
--- NOTE | 2021-04-24 13:55 | Anesthesia-Regional Post-Op ---
Regional Patient Condition Mental Status: Alert, Oriented x3 Circulation: Same as Pre-Op Headache: Absent Sensation: Full Recovery Motor Block: Absent Post Op Complications Complications None Follow Up Care/Instructions Patient Instructions None needed. Anesthesia/Patient Condition Patient is doing well, no complaints, stable vital signs, no apparent adverse anesthesia problems. CIARA LAI DO Apr 24, 2021 13:55
[2021-04-24 15:40] VITALS: BP 125/71
[2021-04-24 20:30] VITALS: BP 129/76
[2021-04-25 00:30] VITALS: BP 131/73
[2021-04-25] MEDS: IBUPROFEN 600 MG (MOTRIN) TAB PO SCH ×2 (00:33→06:02)
[2021-04-25 06:10] VITALS: BP 118/72
--- NOTE | 2021-04-25 08:29 | Postpartum Progress Note ---
Note Note Day # 2 Subjective: Patient is without complaints. Ambulating, voiding. Tolerating a regular diet without nausea or vomiting. Normal lochia. Pain is well controlled with oral pain medications. Objective: Physical Exam: General - Alert and oriented, no apparent distress Abdomen - Soft, appropriately tender to palpation, non-distended, fundus firm at umbilicus Extremities - no edema, negative Alexei's bilaterally Assessment: PPD 2 NVD Acute blood loss anemia GDMA2 - now Plan: Routine care. Encourage breast feeding. Encourage ambulation. Ferrous sulfate supplementation. Plan for discharge today Vitals - Labs Vital Signs - I&O Vital Signs Date Time Temp Pulse Resp B/P (MAP) Pulse Ox O2 Delivery O2 Flow Rate FiO2 04/25/21 06:10 36.6 89 16 118/72 (87) 98 Room Air 04/25/21 00:30 36.4 95 16 131/73 (92) 98 Room Air 04/24/21 20:30 36.6 102 16 129/76 (93) 97 Room Air 04/24/21 15:40 36.7 82 16 125/71 (89) 98 Room Air 04/24/21 12:34 36.9 95 18 114/57 (76) Room Air 04/24/21 08:46 36.5 73 16 125/72 (89) 98 Room Air PARIS GUERIN DO Apr 25, 2021 08:29
[2021-04-25] MEDS: DOCUSATE SODIUM 100 MG (COLACE) CAP PO SCH (08:59)
[2021-04-25] MEDS: PRENATAL VITAMIN 1 EA TAB PO SCH (08:59)
[2021-04-25] MEDS: FERROUS SULF 325 MG (IRON) TAB PO SCH (08:59)
[2021-04-25 09:00] VITALS: BP 143/68
== END 2021-04-25 11:10 | disposition home or self-care (01) | DRG 806 ==
LOC: LDRP 06:21
PROVIDERS: ADMIT Obstetrics & Gynecology; ATTEND Obstetrics & Gynecology
PROC: 10E0XZZ Delivery of Products of Conception, External Approach (ICD-10-PCS; principal; 2021-04-23)
PROC: 0W8NXZZ Division of Female Perineum, External Approach (ICD-10-PCS; 2021-04-23)
DX: O24.429 Gestational diabetes mellitus in childbirth, unspecified control (principal); D62 Acute posthemorrhagic anemia; Z37.0 Single live birth; Z3A.38 38 weeks gestation of pregnancy; O90.81 Anemia of the puerperium
CPT/HCPCS: 36415; 80053; 82947; 85025; 86780; 86850; 86900; 86901

== ENCOUNTER 2021-07-08 04:27 | Emergency (ER) | payer SELFPAY ==
[~2021-07-08] VITALS: Ht 157 cm; Wt 109.5 kg
[~2021-07-08 04:27] MED LIST changes: +ACHD5005 PO; +DCS100C PO; +DIBU30OI TOP; +FERR325T24 PO; +IBUP-844 PO
[2021-07-08 04:52] LABS: BILIRUBIN,URINE NEGATIVE (NEGATIVE); CLARITY,URINE CLEAR; COLOR,URINE YELLOW; GLUCOSE, URINE (UA) NEGATIVE (NEGATIVE); KETONES,URINE NEGATIVE (NEGATIVE); LEUKOCYTE ESTERASE ,URINE NEGATIVE (NEGATIVE); NITRITE,URINE NEGATIVE (NEGATIVE); PH,URINE 8.5 (5-9); PROTEIN,URINE TRACE (NEGATIVE)
--- NOTE | 2021-07-08 04:55 | ED Abdominal Pain ---
General Chief Complaint: Abdominal/GI Problems Stated Complaint: ABD & BACK PAIN Source of Information: Patient (RAMSES BERRY DO) History of Present Illness Date Seen by Provider: Jul 08, 2021 Time Seen by Provider: 04:37 Initial Comments PT ARRIVES VIA POV FROM HOME C/O EPIGASTRIC AND RUQ PAIN THAT RADIATES THROUGH TO BACK PAIN BEGAN AROUND 2100 TONIGHT STATES IT FEELS LIKE GAS TRAPPED UNDER HER RIBS STATES SHE HAS BEEN HAVING THIS PROBLEM OFF AND ON X 7 MONTHS, BUT USUALLY DOES NOT LAST THIS LONG--HAS NOT SOUGHT CARE FOR THIS PROBLEM AT ANY TIME, UNTIL TONSALUD TOOK 2 OVER THE COUNTER GAS PILLS AROUND 2099, BUT VOMITED THEM UP HAS NOT HAD ANY NAUSEA/VOMITING SINCE PT WITH CHRONIC CONSTIPATION, HAD HARD BM TODAY AROUND 190--DOES NOT TAKE ANYTHING FOR CONSTIPATION NO FEVER NO URINARY SYMPTOMS LMP 06/27/21--FIRST PERIOD SINCE SHE DELIVERED 04/23/21. NO CONTROL. PT IS NOT HAD GESTATIONAL DIABETES HAD ONE POST VISIT AT 6 WEEKS, HAS NOT FOLLOWED UP SINCE. STATES SHE WAS SUPPOSED TO HAVE LAB DONE TO CHECK HER BLOOD SUGAR, BUT SHE NEVER HAD IT DONE. 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 (RAMSES BERRY ) Allergies and Home Medications Allergies Coded Allergies: Penicillins (Verified Allergy, Severe, Anaphylaxis, 03/21/21) Patient Home Medication List Home Medication List Reviewed: Yes (STEPHANY DREW MD) Dibucaine (Dibucaine) 30 Gm Oint, 0 GM TOP UD PRN for PAIN- SEE INSTRUCTIONS Prescribed by: PARIS GUERIN on 04/23/211803 Docusate Sodium (Dok) 100 Mg Capsule, 100 MG PO BID PRN for CONSTIPATION-1ST LINE Prescribed by: PARIS GUERIN on 04/23/211803 Ferrous Sulfate (Ferosul) 325 Mg Tablet, 325 MG PO DAILY Prescribed by: PARIS GUERIN on 04/23/211803 Hydrocodone Bit/Acetaminophen (HYDROcodone/APAP 5 MG/325 MG TAB) 1 Tab Tab, 1 EA PO Q4H PRN for PAIN-MODERATE (5-7) Prescribed by: PARIS GUERIN on 04/23/211803 Hydrocodone Bit/Acetaminophen (HYDROcodone/APAP 5 MG/325 MG TAB) 1 Tab Tab, 1 TAB PO Q6H Prescribed by: STEPHANY DREW on 07/08/21 0724 Ibuprofen (Ibu) 600 Mg Tablet, 600 MG PO Q6HR Prescribed by: PARIS GUERIN on 04/23/21 180 Ondansetron (Ondansetron Odt) 4 Mg Tab.rapdis, 4 MG PO Q6H PRN for NAUSEA/VOMITING Prescribed by: STEPHANY DREW on 07/08/21 0723 [diabetic medicine] , PO DAILY, (Reported) Entered as Reported by: PAULA ALBARADO on 04/07/21 1320 Review of Systems Review of Systems Constitutional: no symptoms reported Respiratory: No Symptoms Reported Cardiovascular: No Symptoms Reported Gastrointestinal: See HPI, Abdominal Pain, Constipated, Nausea, Vomiting Genitourinary: See HPI Musculoskeletal: see HPI, back pain Skin: no symptoms reported Psychiatric/Neurological: No Symptoms Reported Endocrine: No Symptoms Reported (RAMSES BERRY DO) Constitutional: no symptoms reported; No fever (STEPHANY DREW MD) Past Splnysl-Gvnsyd-Prukwz Hx Patient Social History Tobacco Use?: No Substance use?: Yes Substance type: Marijuana Alcohol Use?: No (RAMSES BERRY DO) Immunizations Up To Date Tetanus Booster (TDap): Unknown PED Vaccines UTD: Yes (RAMSES BERRY DO) Seasonal Allergies Seasonal Allergies: No (RAMSES BERRY DO) Past Medical History Surgeries: No Respiratory: No Cardiac: No Neurological: Yes (NO TESTS OR MEDICATIONS FOR SEIZURES) Seizure Disorder Reproductive Disorders: No Genitourinary: No Gastrointestinal: No Musculoskeletal: No Endocrine: No HEENT: No Cancer: No Psychosocial: Yes PTSD Integumentary: No Blood Disorders: No (RAMSES BERRY DO) Family Medical History Cancer (RAMSES BERRY DO) Physical Exam Vital Signs Vital Signs - First Documented 07/08/21 04:38 Temp 36.9 Pulse 101 Resp 18 B/P (MAP) 146/92 (110) Pulse Ox 97 O2 Delivery Room Air (STEPHANY DREW MD) Vital Signs Capillary Refill : (RAMSES BERRY DO) Height/Weight/BMI Height: 5'1.00" Weight: 170lbs. oz. 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, no motor/sensory deficits, alert, normal mood/affect, oriented x 3 Skin: normal color, warm/dry; No rash (EDMUNDRAMSES K DO) Progress/Results/Core Measures Results/Orders Lab Results Laboratory Tests Test 07/08/21 04:44 07/08/21 05:09 Range/Units Urine Color YELLOW Urine Clarity CLEAR Urine pH 8.5 5-9 Urine Specific [place] 1.015 L 1.016-1.022 Urine Protein TRACE H NEGATIVE Urine Glucose (UA) NEGATIVE NEGATIVE Urine Ketones NEGATIVE NEGATIVE Urine Nitrite NEGATIVE NEGATIVE Urine Bilirubin NEGATIVE NEGATIVE Urine Urobilinogen 1.0 < = 1.0 MG/DL Urine Leukocyte Esterase NEGATIVE NEGATIVE Urine RBC (Auto) NEGATIVE NEGATIVE Urine RBC NONE /HPF Urine WBC NONE /HPF Urine Squamous Epithelial Cells 10-25 H /HPF Urine Crystals NONE /LPF Urine Bacteria NEGATIVE /HPF Urine Casts NONE /LPF Urine Mucus SMALL H /LPF Urine Culture Indicated NO White Blood Count 9.7 4.3-11.0 10^3/uL Red Blood Count 4.41 3.80-5.11 10^6/uL Hemoglobin 10.4 L 11.5-16.0 g/dL Hematocrit 35 35-52 % Mean Corpuscular Volume 79 L 80-99 fL Mean Corpuscular Hemoglobin 24 L 25-34 pg Mean Corpuscular Hemoglobin Concent 30 L 32-36 g/dL Red Cell Distribution Width 17.2 H 10.0-14.5 % Platelet Count 404 H 130-400 10^3/uL Mean Platelet Volume 10.3 9.0-12.2 fL Immature Granulocyte % (Auto) 0 % Neutrophils (%) (Auto) 85 H 42-75 % Lymphocytes (%) (Auto) 10 L 12-44 % Monocytes (%) (Auto) 4 0-12 % Eosinophils (%) (Auto) 1 0-10 % Basophils (%) (Auto) 0 0-10 % Neutrophils # (Auto) 8.2 H 1.8-7.8 10^3/uL Lymphocytes # (Auto) 1.0 1.0-4.0 10^3/uL Monocytes # (Auto) 0.4 0.0-1.0 10^3/uL Eosinophils # (Auto) 0.1 0.0-0.3 10^3/uL Basophils # (Auto) 0.0 0.0-0.1 10^3/uL Immature Granulocyte # (Auto) 0.0 0.0-0.1 10^3/uL Sodium Level 137 135-145 MMOL/L Potassium Level 3.9 3.6-5.0 MMOL/L Chloride Level 104 98-107 MMOL/L Carbon Dioxide Level 24 21-32 MMOL/L Anion Gap 9 5-14 MMOL/L Blood Urea Nitrogen 12 7-18 MG/DL Creatinine 0.90 0.60-1.30 MG/DL Estimat Glomerular Filtration Rate 81 BUN/Creatinine Ratio 13 Glucose Level 113 H 70-105 MG/DL Calcium Level 9.9 8.5-10.1 MG/DL Corrected Calcium 9.7 8.5-10.1 MG/DL Total Bilirubin 0.8 0.1-1.0 MG/DL Aspartate Amino Transf (AST/SGOT) 359 H 5-34 U/L Alanine Aminotransferase (ALT/SGPT) 175 H 0-55 U/L Alkaline Phosphatase 125 40-136 U/L Total Protein 8.4 H 6.4-8.2 GM/DL Albumin 4.2 3.2-4.5 GM/DL Amylase Level 76 25-125 U/L Lipase 44 8-78 U/L (STEPHANY DREW MD) Medications Given in ED Current Medications Medications Dose Ordered Sig/Mikael Route Start Time Stop Time Status Last Admin Dose Admin Iohexol 100 ml ONCE ONCE IV 07/08/21 05:45 07/08/21 05:46 DC 07/08/21 05:36 100 ML Ketorolac Tromethamine 30 mg ONCE ONCE IVP 07/08/21 05:15 07/08/21 05:16 DC 07/08/21 06:07 30 MG Pantoprazole 40 mg ONCE ONCE IV 07/08/21 05:15 07/08/21 05:16 DC 07/08/21 06:07 40 MG Sodium Chloride 80 ml ONCE ONCE IV 07/08/21 05:45 07/08/21 05:46 DC 07/08/21 05:36 80 ML (STEPHANY DREW MD) Vital Signs/I&O 07/08/21 07/08/21 04:38 07:32 Temp 36.9 36.9 Pulse 101 98 Resp 18 18 B/P (MAP) 146/92 (110) 134/90 Pulse Ox 97 98 O2 Delivery Room Air Room Air (STEPHANY DREW MD) Progress Progress Note : Progress Note GIVEN TORADOL AND PROTONIX--PAIN RELIEVED 0600--CARE TURNED OVER TO DR. DREW, CT PENDING (RAMSES BERRY DO) Progress Note : Progress Note I received this patient in signout from Dr. Berry. CT was pending at this time. There were gallstones without evidence of cholecystitis. The patient story is classic for symptomatic cholelithiasis. I went and reexamined her and her pain has improved and she has no signs of peritonitis. Also no signs of infection at this time. I discussed the case with Dr. Mckeon and he will see her in clinic tomorrow to discuss taking her gallbladder out. The patient was then discharged home in stable condition with strict return precautions (STEPHANY DREW MD) Departure Impression Primary Impression: Symptomatic cholelithiasis Disposition: 01 HOME, SELF-CARE Condition: Stable Departure-Patient Inst. Decision time for Depature: 07:21 (STEPHANY DREW MD) Referrals: OSIRIS MCKEON DO Patient Instructions: Gallstones ED Add. Discharge Instructions: You were seen in the emergency department for abdominal pain. I believe your pain is coming from your gallbladder where you have stones which will cause pain as you eat, specifically if you eat any foods with high fat content. If you try bland diet for the next couple days until you see Dr. Mckeon, then that should help. If you have any fever, worsening pain, or any other concerns then please come back to the ER. Otherwise, please call Dr. Mckeon's office after you leave the emergency department to schedule an appointment for tomorrow. All discharge instructions reviewed with patient and/or family. Voiced understanding. Scripts Ondansetron (Ondansetron Odt) 4 Mg Tab.rapdis 4 MG PO Q6H PRN for NAUSEA/VOMITING for 5 Days, #20 TAB 0 Refills Prov: STEPHANY DREW MD 07/08/21 Hydrocodone Bit/Acetaminophen (HYDROcodone/APAP 5 MG/325 MG TAB) 1 Tab Tab 1 TAB PO Q6H for Pain for 2 Days, #8 TAB 0 Refills Prov: STEPHANY DREW MD 07/08/21 RAMSES BERRY DO Jul 08, 2021 04:55 STEPHANY DREW MD Jul 08, 2021 07:25
[2021-07-08 05:02] LABS: BACTERIA,URINE NEGATIVE /HPF
[2021-07-08] MEDS ORDERED: PANTOPRAZOLE 40 MG (PROTONIX) VIAL IV ONE (05:15)
[2021-07-08] MEDS ORDERED: KETOROLAC 30 MG/ML VIAL IVP ONE (05:15)
[2021-07-08 05:23] LABS: BASOPHILS % (AUTO) 0 % (0-10); EOSINOPHILS # (AUTO) 0.1 10^3/uL (0.0-0.3); EOSINOPHILS % (AUTO) 1 % (0-10); HEMATOCRIT 35 % (35-52); HEMOGLOBIN 10.4 g/dL (11.5-16.0); LYMPHOCYTES % (AUTO) 10 % (12-44); MEAN CORPUSCULAR HEMOGLOBIN 24 pg (25-34); MEAN CORPUSCULAR HGB CONC 30 g/dL (32-36); MEAN CORPUSCULAR VOLUME 79 fL (80-99); MEAN PLATELET VOLUME 10.3 fL (9.0-12.2); MONOCYTES # (AUTO) 0.4 10^3/uL (0.0-1.0); MONOCYTES % (AUTO) 4 % (0-12); NEUTROPHILS # (AUTO) 8.2 10^3/uL (1.8-7.8); NEUTROPHILS % (AUTO) 85 % (42-75); PLATELET COUNT 404 10^3/uL (130-400); WHITE BLOOD COUNT 9.7 10^3/uL (4.3-11.0)
[2021-07-08 05:33] LABS: ALBUMIN 4.2 GM/DL (3.2-4.5); POTASSIUM 3.9 MMOL/L (3.6-5.0)
[2021-07-08 05:35] LABS: CALCIUM 9.9 MG/DL (8.5-10.1)
[2021-07-08 05:36] LABS: TOTAL PROTEIN 8.4 GM/DL (6.4-8.2)
[2021-07-08 05:38] LABS: BILIRUBIN,TOTAL 0.8 MG/DL (0.1-1.0)
[2021-07-08 05:39] LABS: CREATININE SERUM 0.9 MG/DL (0.60-1.30)
[2021-07-08] MEDS ORDERED: IOHEXOL 350 MG/ML 100 ML (OMNIPAQUE 350) VIAL IV ONE (05:45)
[2021-07-08] MEDS ORDERED: NS 100 ML (IVPB) BAG IV ONE (05:45)
--- NOTE | 2021-07-08 06:59 | Diagnostic Imaging Report ---
EXAMINATION: Abdominal radiographs, acute series. DATE: July 08, 2021. CLINICAL INDICATION: 20-year-old female, right upper quadrant abdominal pain. COMPARISON: None. COMMENTS: Heart size and mediastinal contours are unremarkable. There is no identified pneumothorax, large pleural effusion, or focal airspace consolidation. There are no abnormally distended gas-filled segments of bowel. There is no free intraperitoneal air. There is no pneumatosis or portal venous gas. There is no abnormal radiodensity overlying the kidneys or expected positions of the ureters. IMPRESSION: 1. No identified acute abdominal radiographic abnormality. Dictated by: Dictated on workstation # [id number]
--- NOTE | 2021-07-08 07:00 | Diagnostic Imaging Report ---
PROCEDURE: CT abdomen and pelvis with contrast. TECHNIQUE: Multiple contiguous axial images were obtained through the abdomen and pelvis after administration of intravenous contrast. Auto Exposure Controls were utilized during the CT exam to meet ALARA standards for radiation dose reduction. All CT scans use one or more of the following dose optimizing techniques: automated exposure control, MA and/or KvP adjustment based on patient size and exam type or iterative reconstruction. DATE: July 08, 2021. COMPARISON: [facility] July 08, 2021. INDICATION: 20-year-old female, right upper quadrant abdominal pain. FINDINGS: The visualized portions of the lung bases are clear. The heart is not enlarged. There is no pericardial effusion. The liver is normal in size and contour. There is no identified liver lesion. The main, right, and left portal veins are patent. There is cholelithiasis without evidence of acute cholecystitis. There is no biliary ductal dilation. Unremarkable appearance of the pancreas and the spleen. The adrenal glands are unremarkable. Unremarkable appearance of the renal parenchyma. The urinary collecting systems are not distended. There is no identified renal or ureteral stone. Urinary bladder is underdistended and grossly unremarkable in appearance. CT assessment of the uterus and adnexa is grossly unremarkable for patient age. The intestinal tract is not distended. There is no evidence to suggest acute appendicitis. There is no free intraperitoneal air. There are no drainable fluid collection. There is no free pelvic fluid. There is no identified abnormally enlarged lymph node in the abdomen or pelvis meeting CT size criteria for adenopathy. There is no identified acute bony abnormality. IMPRESSION: CT ABDOMEN AND PELVIS. 1. No identified acute abnormality in the abdomen or pelvis. 2. Cholelithiasis without evidence of acute cholecystitis. Dictated by: Dictated on workstation # [id number]
[2021-07-08] MEDS ORDERED: ACHD5005 PO (07:23)
[2021-07-08] MEDS ORDERED: ONDA4TAB11 PO (07:23)
[2021-07-08 07:32] VITALS: BP 134/90
== END 2021-07-08 07:32 | disposition home or self-care (01) ==
LOC: EDUNIT# 04:27 → ER 04:31
DX: K80.20 Calculus of gallbladder without cholecystitis without obstruction (principal); E66.9 Obesity, unspecified
CPT/HCPCS: 36415; 74022; 74177; 80053; 81000; 82150; 83690; 84703; 85025

== ENCOUNTER 2021-07-25 05:31 | Outpatient (CLI) | payer MEDICAID ==
[~2021-07-25] VITALS: Ht 154.9 cm; Wt 101.0 kg
[~2021-07-25 05:31] MED LIST changes: -CLIN150C18 PO; +CLIN150C20 PO; -DCS100C PO; +DOCU-239 PO; +ONDA4TAB11 PO
== END 2021-07-25 10:02 | disposition home or self-care (01) ==
LOC: PREOP 05:31
PROVIDERS: ATTEND Surgery
DX: Z01.818 Encounter for other preprocedural examination (principal)

== ENCOUNTER 2021-07-30 10:56 | Day surgery (SDC) | payer MEDICAID ==
[2021-07-30] VITALS (11 sets, daily range): BP systolic 90–129; BP diastolic 43–87
[~2021-07-30] VITALS: Ht 154 cm; Wt 101.0 kg
--- NOTE | 2021-07-30 11:01 | Progress Note-Pre Operative ---
Pre-Operative Progress Note H&P Reviewed The H&P was reviewed, patient examined and no changes noted. Date Seen by Provider: Jul 30, 2021 Time Seen by Provider: 11: Date H&P Reviewed: Jul 30, 2021 Time H&P Reviewed: 11:01 Pre-Operative Diagnosis: symptomatic cholelithiasis OSIRIS MCKEON DO Jul 30, 2021 11:01
[2021-07-30] MEDS ORDERED: LIDOCAINE/EPI 1%-1:100,000 (XYLOCAINE) 10 ML ONE (11:05)
[2021-07-30] MEDS ORDERED: LACTATED RINGERS 1,000 ML IV PRN (11:15)
[2021-07-30] MEDS ORDERED: CLINDAMYCIN 600 MG/50 ML IVPB 50 ML IV ONE (11:15)
[2021-07-30] MEDS ORDERED: SEVOFLURANE (ULTANE) 15 ML INHAL SOLN ONE ×2 (11:30→12:38)
[2021-07-30] MEDS ORDERED: MIDAZOLAM 2 MG/2 ML (VERSED) VIAL ONE (11:30)
[2021-07-30] MEDS ORDERED: ROCURONIUM 10 MG/ML 5 ML SYRINGE IV ONE (11:30)
[2021-07-30] MEDS ORDERED: fentaNYL INJ 100 MCG/2 ML AMP ONE ×2 (11:30→12:15)
[2021-07-30] MEDS ORDERED: proPOfol 200 MG/20 ML (DIPRIVAN) VIAL IV ONE (11:30)
[2021-07-30] MEDS ORDERED: LIDOCAINE PF 2% 5 ML (XYLOCAINE) VIAL ONE (11:30)
[2021-07-30] MEDS ORDERED: ONDANSETRON 4 MG/2 ML (SDV) Z0FRAN ONE (11:30)
--- NOTE | 2021-07-30 12:50 | Progress Note-Post Operative ---
Post-Operative Progess Note Surgeon (s)/Duplicate Maker (s) Surgeon OSIRIS MCKEON DO Duplicate Maker: Dr. Mccoy to assist in retraction dissection and closure Pre-Operative Diagnosis symptomatic cholelithiasis Post-Operative Diagnosis symptomatic cholelithiasis, possible bile duct stone Procedure & Operative Findings Date of Procedure 07/30/21 Procedure Performed/Findings PROCEDURE: Laparoscopic cholecystectomy with intraoperative cholangiogram. COMPLICATIONS: None. PROCEDURE: The patient was taken to the operating suite and was prepped and draped in sterile fashion. A surgical pause was performed. Just superior to the umbilicus, a 12 mm incision was made. Dissection was taken down to the fascia, which was then scored and grasped with a Sebastian and the abdomen was then entered. A 0 Vicryl suture was placed in a loisoc-ex-ifbsh fashion and a Lindsey trocar was placed and secured. Pneumoperitoneum was achieved. A 5mm trochar place in the subxyphoid and 2 in the right upper quadrant. The gallbladder was then grasped and elevated. Adhesions were taken down with blunt and cautery dissection. The cystic duct, and cystic artery were then dissected out. Clip was placed on the distal portion of the cystic duct which was then partially transected. An arrow catheter was inserted into the duct. The cholangiogram was then performed. Possible filing defects but contrast made its way into the duodenum. Catheter removed. Small stones removed from cystic duct. Clips were placed on proximal portion of the cystic duct and then the duct was then transected. Clips were placed along the proximal and distal portion of the cystic artery which was then transected. Hook cautery was used to dissect the gallbladder from the gallbladder fossa achieving hemostasis. The gallbladder was placed in an Endobag and removed through the 12 mm trocar site. The abdomen was then reinspected. Copious amounts of irrigation were used to irrigate the abdomen and there were no signs of active bleeding. Hemostasis had been achieved. The 12 mm fascial defect was then closed with 0 Vicryl suture that had been placed in a [id number] fashion. The abdomen was then desufflated, the trocars were removed. The abdomen was then washed and dried. The skin was then closed using 4-0 Monocryl in a subcuticular fashion. The abdomen was washed and dried and Skin Affix was place over incisions. Patient tolerated the procedure well without any complications and was taken to the recovery room in stable condition. Anesthesia Type general Estimated Blood Loss Estimated blood loss (mL): minimal Specimens/Packing Specimens Removed gallbladder OSIRIS MCKEON DO Jul 30, 2021 12:50
[2021-07-30] MEDS ORDERED: ACHD5005 PO (12:52)
[2021-07-30] MEDS ORDERED: DOCU-143 PO (12:52)
--- NOTE | 2021-07-30 12:53 | Discharge Inst-Simple/Standard ---
Discharge Inst-Standard Discharge Medications New, Converted or Re-Newed RX: Transmitted to Pharmacy Patient Instructions/Follow Up Plan of Care/Instructions/FU: 2 weeks Marleny. You are to be scheduled for an MRCP procedure with radiology. Activity as Tolerated: No Discharge Diet: Regular Diet Other Inst to Patient Follow up Appt: Make appointment for 2 weeks. Instructions: No lifting greater than 10 pounds. No strenuous activity. May shower in 24 hours, no tub bath or soaking. Use incentive spirometer at home as directed. No Smoking Skin/Wound Care: You have special glue over incision, it will fall off on it's own. Symptoms to Report: Appetite Changes, Extremity Discoloration, Numbness/Tingling, Swelling Increased, Bleeding Excessive, Eyesight Changes, Pain Increased, Urine Color Change, Constipation(Persistent), Fever over 101 degree F, Pain/Pressure in chest, Urinating Difficulty, Cough Up/Vomit Blood, Heart Beat Irreg/Pounding, Pain/Pressure in jaw, Vaginal Bleeding Increase, Cramps in feet or legs, Lightheadedness, Pain/Pressure in shoulder, Diarrhea(Persistent), Memory Changes Suddenly, Questions/Concerns, Weight gain consecutive days, Dizziness/Fainting, Nausea/Vomiting, Shortness of Breath, Weight gain over 2 pounds. If eyes or skin turn yellow notify physician. If questions or concerns contact your physician Or seek help at emergency department. OSIRIS MCKEON DO Jul 30, 2021 12:53
--- NOTE | 2021-07-30 12:58 | Anesthesia-General Post-Op ---
General Patient Condition Mental Status/LOC: Same as Preop Cardiovascular: Satisfactory Nausea/Vomiting: Absent Respiratory: Satisfactory Pain: Controlled Complications: Absent Post Op Complications Complications None Follow Up Care/Instructions Patient Instructions None needed. Anesthesia/Patient Condition Patient Condition Patient is doing well, no complaints, stable vital signs, no apparent adverse anesthesia problems. No complications reported per nursing. ANI MALDONADO CRNA Jul 30, 2021 12:58
[2021-07-30] MEDS ORDERED: morphine INJ 10 MG/ML 1ML (SYR OR VIAL) IVP ONE (13:00)
[2021-07-30] MEDS ORDERED: MEPERIDINE (DEMEROL) INJ 50 MG/ML IVP ONE (13:00)
[2021-07-30] MEDS ORDERED: fentaNYL INJ 100 MCG/2 ML AMP IVP ONE (13:00)
[2021-07-30] MEDS ORDERED: ONDANSETRON 4 MG/2 ML (SDV) Z0FRAN IVP PRN (13:00)
[2021-07-30] MEDS ORDERED: HYDROcodone/APAP 5 MG/325 MG (LORTAB) TAB ONE (13:56)
[2021-07-30] MEDS ORDERED: HYDROcodone/APAP 5 MG/325 MG (LORTAB) TAB PO ONE (14:00)
--- NOTE | 2021-07-30 15:57 | Diagnostic Imaging Report ---
EXAMINATION: Fluoroscopy at 12:28 p.m. INDICATION: Abdominal pain. Fluoroscopic assistance was provided for Dr. Farmer during his operative cholangiogram. 8.6 seconds of fluoroscopy time was utilized. 35 spot films of the right upper quadrant were obtained. FINDINGS: There has been opacification of the common bile duct via a cystic duct catheter. The common bile duct may be slightly dilated, but there is no evidence for retained calculus, and contrast is seen extending into the small bowel. IMPRESSION: Fluoroscopic assistance was provided for Dr. Farmer. Dictated by: Dictated on workstation # [id number]
== END 2021-07-30 15:05 | disposition home or self-care (01) ==
LOC: SDC 10:56
PROVIDERS: ATTEND Surgery
DX: K80.10 Calculus of gallbladder with chronic cholecystitis without obstruction (principal); I10 Essential (primary) hypertension; E11.9 Type 2 diabetes mellitus without complications; R56.9 Unspecified convulsions; E66.01 Morbid (severe) obesity due to excess calories; Z68.41 Body mass index [BMI] 40.0-44.9, adult; Z88.0 Allergy status to penicillin; Z11.2 Encounter for screening for other bacterial diseases
CPT/HCPCS: 76000; 84703; 87081

== ENCOUNTER → 2021-08-25 | Outpatient (CLI) | payer MEDICAID ==
[~2021-08-25] MED LIST changes: +DOCU-143 PO
--- NOTE | 2021-08-25 16:54 | Diagnostic Imaging Report ---
PROCEDURE: MR imaging cholangiography-pancreatography. TECHNIQUE: Multiplanar imaging of the abdomen was performed on a 1.5 Laisha magnet without contrast. 3D reconstructions were made for the MRCP INDICATION: Post cholecystectomy with right upper quadrant pain. FINDINGS: There is no intra or extrahepatic bile duct dilatation. No focal stricture of the common hepatic or common bile duct. No filling defect or choledocholithiasis. Pancreas, pancreatic duct, pancreatic parenchyma, and the peripancreatic fat appeared unremarkable. Liver parenchyma is nonfocal. There is no perihepatic fluid collection. No evidence for abscess, hematoma, or biloma. There is no ascites. The kidneys are unobstructed. There is no adrenal mass. IMPRESSION: Normal abdominal MRI/MRCP. No acute hepatobiliary abnormality or postsurgical complication. No ductal pathology demonstrated. Dictated by: Dictated on workstation # [id number]
== END ==
LOC: RAD 14:00
PROVIDERS: ATTEND Surgery
DX: K80.51 Calculus of bile duct without cholangitis or cholecystitis with obstruction (principal); Z90.49 Acquired absence of other specified parts of digestive tract
CPT/HCPCS: 74181

== ENCOUNTER 2021-12-21 17:56 | Emergency (ER) | payer MEDICAID ==
[~2021-12-21] VITALS: Ht 157 cm; Wt 100.6 kg
--- NOTE | 2021-12-21 18:19 | ED GI ---
General Chief Complaint: Abdominal/GI Problems Stated Complaint: ABD PAIN Nursing Triage Note: pt presents to ed via pov from home with complaints of interittent upper abdominal pain x 1 month. pt also reports being aprx 10 weeks . denies spotting or new vaginal discharge. Source of Information: Patient History of Present Illness Date Seen by Provider: Dec 21, 2021 Time Seen by Provider: 18:09 Initial Comments PT ARRIVES VIA POV FROM HOME PT IS 10 WEEKS WITH LMP 10/01/22 C/O EPIGASTRIC PAIN OFF AND ON X 1 MONTH HAS HAD "CHEST PAIN" WITH IT FOR 2-3 WEEKS HAS HAD PAIN AFTER URINATION X 1 MONTH NO FEVER HAD NAUSEA AND VOMITED "STOMACH ACID" X 1 TODAY HAD NORMAL BM TODAY NO COUGH OR URI SYMPTOMS NO SHORTNESS OF BREATH NO VAGINAL DISCHARGE OR BLEEDING NO FOUL ODOR NO PAIN WITH INTERCOURSE NO PELVIC PAIN SAW DR. TERAN 3 WEEKS AGO FOR VISIT--HAD PELVIC EXAM DONE AND PT STATES WAS NORMAL AND NO INFECTION. NO RX'S. DID NOT DISCUSS CURRENT COMPLAINTS STATES SHE WILL BE SEEING DR. GUERIN, BUT HAS NOT SEEN HIM YET. SYMPTOMS ARE NO DIFFERENT TODAY IN ANY WAY HAS NOT SOUGHT CARE UNTIL TODAY HAS NOT TAKEN ANYTHING FOR SYMPTOMS PCP: [facility] ALSO SEES DR. TERAN, AND WILL BE ESTABLISHING WITH DR. GUERIN FOR OB CARE Allergies and Home Medications Allergies Coded Allergies: Penicillins (Verified Allergy, Severe, Anaphylaxis, 07/25/21) Patient Home Medication List Docusate Sodium (Colace) 100 Mg Capsule, 100 MG PO DAILY Prescribed by: OSIRIS MCKEON on 07/30/21 1252 Hydrocodone/Acetaminophen (Hydrocodone-Acetamin 5-325 mg) 1 Each Tablet, 1 EACH PO Q4H PRN for PAIN-MODERATE (5-7) Prescribed by: OSIRIS MCKEON on 07/30/21 1252 Review of Systems Review of Systems Constitutional: no symptoms reported EENTM: No Symptoms Reported Respiratory: No Symptoms Reported Cardiovascular: See HPI Gastrointestinal: See HPI Genitourinary: See HPI Musculoskeletal: no symptoms reported; No back pain Skin: no symptoms reported Endocrine: No Symptoms Reported Hematologic/Lymphatic: No Symptoms Reported Past Ecbzhsc-Nlbgrr-Sguqtp Hx Patient Social History Tobacco Use?: No Substance use?: No Alcohol Use?: No Pt feels they are or have been: No Immunizations Up To Date Tetanus Booster (TDap): Unknown PED Vaccines UTD: Yes Seasonal Allergies Seasonal Allergies: Yes Past Medical History Surgery/Hospitalization HX: SIEZURE HX Surgeries: Yes Gallbladder, Thyroidectomy Respiratory: No Currently Using CPAP: No Currently Using BIPAP: No Cardiac: Yes Heart Murmur Neurological: Yes (NO TESTS OR MEDICATIONS FOR SEIZURES-last one Jun) Seizure Disorder : Yes Last Menstrual Period: Oct 01, 2021 Reproductive Disorders: No Sexually Transmitted Disease: No Genitourinary: No Gastrointestinal: Yes (S/P CHOLECYSTECTOMY) Gall Bladder Disease Musculoskeletal: No Endocrine: Yes (GESTATIONAL DM 04/2021. GOITER REMOVED.) HEENT: No Loss of Vision: Denies Hearing Impairment: Denies Cancer: No Psychosocial: Yes Anxiety, PTSD, Depression Integumentary: No Blood Disorders: No Family Medical History Cancer Physical Exam Vital Signs Vital Signs - First Documented 12/21/21 18:05 Temp 36.0 Pulse 93 Resp 18 B/P (MAP) 143/70 (94) Pulse Ox 98 Capillary Refill : Less Than 3 Seconds Height/Weight/BMI Height: 5'1.00" Weight: 170lbs. oz. 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, no motor/sensory deficits, alert, normal mood/affect, oriented x 3 Skin: normal color, warm/dry Progress/Results/Core Measures Results/Orders Lab Results Laboratory Tests Test 12/21/21 18:17 12/21/21 18:50 Range/Units Urine Color YELLOW Urine Clarity CLEAR Urine pH 7.0 5-9 Urine Specific [place] 1.010 L 1.016-1.022 Urine Protein NEGATIVE NEGATIVE Urine Glucose (UA) NEGATIVE NEGATIVE Urine Ketones TRACE H NEGATIVE Urine Nitrite NEGATIVE NEGATIVE Urine Bilirubin NEGATIVE NEGATIVE Urine Urobilinogen 0.2 < = 1.0 MG/DL Urine Leukocyte Esterase 1+ H NEGATIVE Urine RBC (Auto) NEGATIVE NEGATIVE Urine RBC NONE /HPF Urine WBC 5-10 H /HPF Urine Squamous Epithelial Cells 0-2 /HPF Urine Renal Epithelial Cells NONE /HPF Urine Crystals NONE /LPF Urine Bacteria NEGATIVE /HPF Urine Casts NONE /LPF Urine Mucus NEGATIVE /LPF Urine Culture Indicated NO Urine Opiates Screen NEGATIVE NEGATIVE Urine Oxycodone Screen NEGATIVE NEGATIVE Urine Methadone Screen NEGATIVE NEGATIVE Urine Propoxyphene Screen NEGATIVE NEGATIVE Urine Barbiturates Screen NEGATIVE NEGATIVE Ur Tricyclic Antidepressants Screen NEGATIVE NEGATIVE Urine Phencyclidine Screen NEGATIVE NEGATIVE Urine Amphetamines Screen NEGATIVE NEGATIVE Urine Methamphetamines Screen NEGATIVE NEGATIVE Urine Benzodiazepines Screen NEGATIVE NEGATIVE Urine Cocaine Screen NEGATIVE NEGATIVE Urine Cannabinoids Screen NEGATIVE NEGATIVE White Blood Count 7.6 4.3-11.0 10^3/uL Red Blood Count 4.55 3.80-5.11 10^6/uL Hemoglobin 10.5 L 11.5-16.0 g/dL Hematocrit 34 L 35-52 % Mean Corpuscular Volume 75 L 80-99 fL Mean Corpuscular Hemoglobin 23 L 25-34 pg Mean Corpuscular Hemoglobin Concent 31 L 32-36 g/dL Red Cell Distribution Width 17.6 H 10.0-14.5 % Platelet Count 262 130-400 10^3/uL Mean Platelet Volume 11.7 9.0-12.2 fL Immature Granulocyte % (Auto) 0 % Neutrophils (%) (Auto) 76 H 42-75 % Lymphocytes (%) (Auto) 13 12-44 % Monocytes (%) (Auto) 9 0-12 % Eosinophils (%) (Auto) 2 0-10 % Basophils (%) (Auto) 0 0-10 % Neutrophils # (Auto) 5.8 1.8-7.8 10^3/uL Lymphocytes # (Auto) 1.0 1.0-4.0 10^3/uL Monocytes # (Auto) 0.7 0.0-1.0 10^3/uL Eosinophils # (Auto) 0.2 0.0-0.3 10^3/uL Basophils # (Auto) 0.0 0.0-0.1 10^3/uL Immature Granulocyte # (Auto) 0.0 0.0-0.1 10^3/uL Sodium Level 132 L 135-145 MMOL/L Potassium Level 3.9 3.6-5.0 MMOL/L Chloride Level 107 98-107 MMOL/L Carbon Dioxide Level 13 L 21-32 MMOL/L Anion Gap 12 5-14 MMOL/L Blood Urea Nitrogen 4 L 7-18 MG/DL Creatinine 0.67 0.60-1.30 MG/DL Estimat Glomerular Filtration Rate 128 BUN/Creatinine Ratio 6 Glucose Level 75 70-105 MG/DL Calcium Level 9.2 8.5-10.1 MG/DL Corrected Calcium 9.4 8.5-10.1 MG/DL Total Bilirubin 0.4 0.1-1.0 MG/DL Aspartate Amino Transf (AST/SGOT) 22 5-34 U/L Alanine Aminotransferase (ALT/SGPT) 8 0-55 U/L Alkaline Phosphatase 41 40-136 U/L Total Protein 8.5 H 6.4-8.2 GM/DL Albumin 3.7 3.2-4.5 GM/DL Amylase Level 73 25-125 U/L Lipase 16 8-78 U/L Human Chorionic Gonadotropin, Quant [id number] H <5 MIU/ML My Orders Orders - RAMSES SHAFFER DO Ed Iv/Invasive Line Start (12/21/21 18:13) Amylase (12/21/21 18:13) Cbc With Automated Diff (12/21/21 18:13) Comprehensive Metabolic Panel (12/21/21 18:13) Drug Screen Stat (Urine) (12/21/21 18:13) Hcg,Quantitative (12/21/21 18:13) Lipase (12/21/21 18:13) Ua Culture If Indicated (12/21/21 18:13) Vital Signs/I&O 12/21/21 18:05 Temp 36.0 Pulse 93 Resp 18 B/P (MAP) 143/70 (94) Pulse Ox 98 Blood Pressure Mean: 94 Progress Progress Note : Progress Note FHR 160'S Departure Impression Primary Impression: UTI (urinary tract infection) in in first trimester Additional Impression: Epigastric abdominal pain affecting in first trimester Disposition: 01 HOME, SELF-CARE Condition: Stable Departure-Patient Inst. Decision time for Depature: 20:05 Referrals: [facility] (PCP) Primary Care Physician LATA SORIA (Family) Primary Care Physician PARIS GUERIN DO Patient Instructions: Stomach Pain in Early , Urinary Tract Infections in Add. Discharge Instructions: LOTS OF CLEAR LIQUIDS--WATER, BROTH, JELLO, GATORADE BLAND DIET--NO SPICY, GREASY/HIGH FAT OR ACIDIC FOODS OR DRINKS FOLLOW UP WITH DR. GUERIN SOON POSSIBLE--CALL IN THE MORNING TO SCHEDULE APPOINTMENT All discharge instructions reviewed with patient and/or family. Voiced understanding. Scripts Nitrofurantoin Monohyd/M-Cryst (Macrobid 100 mg Capsule) 100 Mg Capsule 1 TAB PO BID, #20 CAP Prov: RAMSSE SHAFFER DO 12/21/21 Sucralfate (Carafate) 1 Gm Tablet 1 GM PO QID, #60 TAB Prov: RAMSES SHAFFER DO 12/21/21 RAMSES SHAFFER DO Dec 21, 2021 18:19
[2021-12-21 18:33] LABS: BILIRUBIN,URINE NEGATIVE (NEGATIVE); CLARITY,URINE CLEAR; COLOR,URINE YELLOW; GLUCOSE, URINE (UA) NEGATIVE (NEGATIVE); KETONES,URINE TRACE (NEGATIVE); LEUKOCYTE ESTERASE ,URINE 1+ (NEGATIVE); NITRITE,URINE NEGATIVE (NEGATIVE); PROTEIN,URINE NEGATIVE (NEGATIVE)
[2021-12-21 18:35] LABS: BACTERIA,URINE NEGATIVE /HPF; SQUAMOUS EPITHELIAL CELL,UR 0-2 /HPF
[2021-12-21 18:37] LABS: AMPHETAMINE SCREEN, URINE NEGATIVE (NEGATIVE); BARBITURATE SCREEN URINE NEGATIVE (NEGATIVE); BENZODIAZEPINES SCREEN URINE NEGATIVE (NEGATIVE); CANNABINOID SCREEN, URINE NEGATIVE (NEGATIVE); COCAINE SCREEN URINE NEGATIVE (NEGATIVE); METHADONE STAT NEGATIVE (NEGATIVE); METHAMPHETAMINE SCREEN URINE S NEGATIVE (NEGATIVE); OPIATE SCREEN URINE NEGATIVE (NEGATIVE); OXYCODONE STAT NEGATIVE (NEGATIVE); PROPOXYPHENE STAT NEGATIVE (NEGATIVE); TRICYCLIC ANTIDEPRESSANTS SCRE NEGATIVE (NEGATIVE)
[2021-12-21 18:55] LABS: BASOPHILS % (AUTO) 0 % (0-10); EOSINOPHILS # (AUTO) 0.2 10^3/uL (0.0-0.3); EOSINOPHILS % (AUTO) 2 % (0-10); HEMATOCRIT 34 % (35-52); HEMOGLOBIN 10.5 g/dL (11.5-16.0); LYMPHOCYTES % (AUTO) 13 % (12-44); MEAN CORPUSCULAR HEMOGLOBIN 23 pg (25-34); MEAN CORPUSCULAR HGB CONC 31 g/dL (32-36); MEAN CORPUSCULAR VOLUME 75 fL (80-99); MEAN PLATELET VOLUME 11.7 fL (9.0-12.2); MONOCYTES # (AUTO) 0.7 10^3/uL (0.0-1.0); MONOCYTES % (AUTO) 9 % (0-12); NEUTROPHILS # (AUTO) 5.8 10^3/uL (1.8-7.8); NEUTROPHILS % (AUTO) 76 % (42-75); PLATELET COUNT 262 10^3/uL (130-400); WHITE BLOOD COUNT 7.6 10^3/uL (4.3-11.0)
[2021-12-21 19:20] LABS: ALBUMIN 3.7 GM/DL (3.2-4.5); BILIRUBIN,TOTAL 0.4 MG/DL (0.1-1.0); CALCIUM 9.2 MG/DL (8.5-10.1); CREATININE SERUM 0.67 MG/DL (0.60-1.30); TOTAL PROTEIN 8.5 GM/DL (6.4-8.2)
[2021-12-21 20:01] LABS: POTASSIUM 3.9 MMOL/L (3.6-5.0)
[2021-12-21] MEDS ORDERED: SUCR1TAB36 PO (20:09)
[2021-12-21] MEDS ORDERED: NITR-65 PO (20:09)
[2021-12-21 20:22] VITALS: BP 120/82
== END 2021-12-21 20:24 | disposition home or self-care (01) ==
LOC: EDUNIT# 17:56 → ER 17:58
DX: O23.41 Unspecified infection of urinary tract in pregnancy, first trimester (principal); O26.891 Other specified pregnancy related conditions, first trimester; R10.13 Epigastric pain; E66.9 Obesity, unspecified; Z3A.10 10 weeks gestation of pregnancy; Z68.41 Body mass index [BMI] 40.0-44.9, adult
CPT/HCPCS: 36415; 80053; 80306; 81000; 82150; 83690; 84702; 85025

== ENCOUNTER 2022-02-09 16:34 | Emergency (ER) | payer MEDICAID ==
[~2022-02-09] VITALS: Ht 157 cm; Wt 97.0 kg
[~2022-02-09 16:34] MED LIST changes: +NITR-65 PO; +SUCR1TAB36 PO
[2022-02-09] MEDS ORDERED: ACETAMINOPHEN 500 MG TAB (TYLENOL) PO ONE (17:00)
--- NOTE | 2022-02-09 17:00 | ED Syncope ---
General Chief Complaint: Dizziness/Syncope Stated Complaint: SYNCOPE Nursing Triage Note: PT ARRIVED PER EMS, PT AWAKE AND ALERT, PT ARRIVED W C-COLLAR IN PLACE. PT DENIES PAIN, 1637 C-COLLAR REMOVED BY DR KEANE AFTER EXAM. PT HAS SL IN PLACE #20 BY EMS. PT STATES SHE IS 19 WEEKS . PT WAS AT [facility] CLASS. Source of Information: Patient Exam Limitations: No Limitations (GARY KEANE) History of Present Illness Date Seen by Provider: Feb 09, 2022 Time Seen by Provider: 16:34 Initial Comments Patient to the ER by EMS from class at [facility] where she was attending. Had just started and she says the room got very hot she felt faint and then passed out and fell to the floor. She says she thought she had a focal seizure. She says she has not been formally diagnosed with epilepsy and is awaiting a sleep study. She does not take any antiepileptics. She has been decreasing her dietary intake to once a day and attempt to not develop gestational diabetes like her previous . She is 19 weeks and some change followed by Dr. Navas. She has a headache but her neck does not hurt. C-collar placed by EMS. Patient states he was out for about 30 seconds or less according to witnesses. No postictal phase noted. (GARY KEANE) Allergies and Home Medications Allergies Coded Allergies: Penicillins (Verified Allergy, Severe, Anaphylaxis, 07/25/21) Patient Home Medication List Home Medication List Reviewed: Yes (GARY KEANE) Docusate Sodium (Colace) 100 Mg Capsule, 100 MG PO DAILY Prescribed by: OSIRIS MCKEON on 07/30/21 1252 Hydrocodone/Acetaminophen (Hydrocodone-Acetamin 5-325 mg) 1 Each Tablet, 1 EACH PO Q4H PRN for PAIN-MODERATE (5-7) Prescribed by: OSIRIS MCKEON on 07/30/21 1252 Nitrofurantoin Monohyd/M-Cryst (Macrobid 100 mg Capsule) 100 Mg Capsule, 1 TAB PO BID Prescribed by: RAMSES SHAFFER on 12/21/212008 Sucralfate (Carafate) 1 Gm Tablet, 1 GM PO QID Prescribed by: RAMSES SHAFFER on 12/21/212008 Review of Systems Constitutional: No chills, No fever EENTM: No ear discharge, No ear pain Respiratory: No cough, No phlegm Cardiovascular: No chest pain, No edema Gastrointestinal: No abdominal pain, No nausea Genitourinary: No discharge, No dysuria : Yes Musculoskeletal: No back pain, No joint pain (GARY KEANE) All Other Systems Reviewed Negative Unless Noted: Yes (GARY KEANE) Past Qjmfbgt-Sxbkee-Naagim Hx Patient Social History Tobacco Use?: No Substance use?: No Alcohol Use?: No Pt feels they are or have been: No (GARY KEANE) Immunizations Up To Date Tetanus Booster (TDap): Unknown PED Vaccines UTD: Yes (GARY KEANE) Seasonal Allergies Seasonal Allergies: Yes (GARY KEANE) Past Medical History Surgery/Hospitalization HX: SIEZURE HX Surgeries: Yes Gallbladder, Thyroidectomy Respiratory: No Currently Using CPAP: No Currently Using BIPAP: No Cardiac: Yes Heart Murmur Neurological: Yes (NO TESTS OR MEDICATIONS FOR SEIZURES-last one Jun) Seizure Disorder Last Menstrual Period: Oct 01, 2021 Reproductive Disorders: No Sexually Transmitted Disease: No Genitourinary: No Gastrointestinal: Yes (S/P CHOLECYSTECTOMY) Gall Bladder Disease Musculoskeletal: No Endocrine: Yes (GESTATIONAL DM 04/2021. GOITER REMOVED.) HEENT: No Loss of Vision: Denies Hearing Impairment: Denies Cancer: No Psychosocial: Yes Anxiety, PTSD, Depression Integumentary: No Blood Disorders: No (GARY KEANE) Family Medical History Cancer (GARY KEANE) Physical Exam Vital Signs Vital Signs - First Documented 02/09/22 16:34 Temp 36.2 Pulse 77 Resp 18 B/P (MAP) 139/88 (105) Pulse Ox 100 (STEPHANY CORONEL) Vital Signs Capillary Refill : Less Than 3 Seconds (GARY KEANE) Height, Weight, BMI Height: 5'1.00" Weight: 170lbs. oz. 77.199927lj; 39.00 BMI Method:Stated General Appearance: No Apparent Distress, WD/WN HEENT: PERRL/EOMI, Pharynx Normal, Moist Mucous Membranes Neck: Full Range of Motion, Normal Inspection Cardiovascular: Regular Rate, Rhythm, No Edema, Normal Peripheral Pulses Respiratory: Lungs Clear, Normal Breath Sounds, No Accessory Muscle Use, No Respiratory Distress Gastrointestinal: Normal Bowel Sounds, No Organomegaly, Non Tender, Soft Extremities: Normal Capillary Refill, Normal Inspection, No Pedal Edema Neurologic/Psychiatric: Alert, Oriented x3, No Motor/Sensory Deficits, Normal Mood/Affect Cranial Nerves: Normal Hearing, Normal Speech, PERRL Motor/Sensory: No Motor Deficit, No Sensory Deficit, No Pronator Drift Skin: Normal Color, Warm/Dry (LAKHWINDER,GARY J) Progress/Results/Core Measures Results/Orders Lab Results Laboratory Tests Test 02/09/22 17:32 02/09/22 18:20 02/09/22 18:38 Range/Units Sodium Level 137 135-145 MMOL/L Potassium Level 3.3 L 3.6-5.0 MMOL/L Chloride Level 105 98-107 MMOL/L Carbon Dioxide Level 18 L 21-32 MMOL/L Anion Gap 14 5-14 MMOL/L Blood Urea Nitrogen 5 L 7-18 MG/DL Creatinine 0.67 0.60-1.30 MG/DL Estimat Glomerular Filtration Rate 128 BUN/Creatinine Ratio 7 Glucose Level 92 70-105 MG/DL Calcium Level 9.2 8.5-10.1 MG/DL Corrected Calcium 9.7 8.5-10.1 MG/DL Total Bilirubin 0.2 0.1-1.0 MG/DL Aspartate Amino Transf (AST/SGOT) 17 5-34 U/L Alanine Aminotransferase (ALT/SGPT) 9 0-55 U/L Alkaline Phosphatase 32 L 40-136 U/L C-Reactive Protein High Sensitivity 0.47 0.00-0.50 MG/DL Total Protein 7.0 6.4-8.2 GM/DL Albumin 3.4 3.2-4.5 GM/DL White Blood Count 9.5 4.3-11.0 10^3/uL Red Blood Count 4.61 3.80-5.11 10^6/uL Hemoglobin 10.9 L 11.5-16.0 g/dL Hematocrit 36 35-52 % Mean Corpuscular Volume 77 L 80-99 fL Mean Corpuscular Hemoglobin 24 L 25-34 pg Mean Corpuscular Hemoglobin Concent 31 L 32-36 g/dL Red Cell Distribution Width 17.8 H 10.0-14.5 % Platelet Count 342 130-400 10^3/uL Mean Platelet Volume 10.4 9.0-12.2 fL Immature Granulocyte % (Auto) 0 % Neutrophils (%) (Auto) 79 H 42-75 % Lymphocytes (%) (Auto) 14 12-44 % Monocytes (%) (Auto) 5 0-12 % Eosinophils (%) (Auto) 1 0-10 % Basophils (%) (Auto) 0 0-10 % Neutrophils # (Auto) 7.5 1.8-7.8 10^3/uL Lymphocytes # (Auto) 1.4 1.0-4.0 10^3/uL Monocytes # (Auto) 0.5 0.0-1.0 10^3/uL Eosinophils # (Auto) 0.1 0.0-0.3 10^3/uL Basophils # (Auto) 0.0 0.0-0.1 10^3/uL Immature Granulocyte # (Auto) 0.0 0.0-0.1 10^3/uL Urine Color YELLOW Urine Clarity CLEAR Urine pH 7.0 5-9 Urine Specific [place] 1.010 L 1.016-1.022 Urine Protein NEGATIVE NEGATIVE Urine Glucose (UA) NEGATIVE NEGATIVE Urine Ketones NEGATIVE NEGATIVE Urine Nitrite NEGATIVE NEGATIVE Urine Bilirubin NEGATIVE NEGATIVE Urine Urobilinogen 0.2 < = 1.0 MG/DL Urine Leukocyte Esterase NEGATIVE NEGATIVE Urine RBC (Auto) NEGATIVE NEGATIVE Urine RBC 0-2 /HPF Urine WBC 0-2 /HPF Urine Squamous Epithelial Cells 2-5 /HPF Urine Crystals NONE /LPF Urine Bacteria FEW H /HPF Urine Casts NONE /LPF Urine Hyaline Casts RARE /LPF Urine Mucus SMALL H /LPF Urine Culture Indicated YES (STEPHANY CORONEL) Medications Given in ED Current Medications Medications Dose Ordered Sig/Mikael Route Start Time Stop Time Status Last Admin Dose Admin Acetaminophen 1,000 mg ONCE ONCE PO 02/09/22 17:00 02/09/22 17:01 DC 02/09/22 17:01 1,000 MG (STEPHANY CORONEL) Vital Signs/I&O 02/09/22 02/09/22 16:34 18:31 Temp 36.2 Pulse 77 68 79 81 Resp 18 B/P (MAP) 139/88 (105) 119/65 (83) 121/66 (84) 123/74 (90) Pulse Ox 100 (STEPHANY CORONEL) Blood Pressure Mean: 105 Progress Progress Note #1: Time: 17:02 Progress Note Patient describes what sound like a syncopal episode. Could be related to seizure. We will get an EKG check some labs and urine to see if there is any evidence of infection or other worrisome symptoms. Gets heart tones. She is alert oriented and only had a 20-30 second episode of loss of consciousness without any reported postictal phase. Either way we will encourage her to continue an outpatient work-up. Tylenol 1000 mg for her headache. C-collar cleared at 1700 clinically. heart tones 147. Progress Note #2: Time: 17:21 Progress Note Blood work had to be redrawn. Patient is drinking fluids and has not produced a urine specimen yet. Resting comfortably. (GARY KEANE) Initial ECG Impression Date: Feb 09, 2022 Initial ECG Impression Time: 17:18 Initial ECG Rate: 69 Initial ECG Rhythm: Normal Sinus Initial ECG Intervals: Normal Initial ECG Impression: Normal Initial ECG Comparisson: Unchanged Comment Normal sinus rhythm with no relevant ST changes. No dysrhythmia. (GARY KEANE) Transfer of Care Time: 18:27 Care transferred to: Isidro PEÑA (GARY KEANE) Departure Communication (PCP) Patient symptoms improved after liter of fluid. Patient feels much better at this time. Patient was not orthostatic hypotensive. Lab work was reassuring. Follow-up outpatient at this time. Return precaution were discussed with yazan dela cruz. Discussed incorporating some form of diet and drink plenty of fluids. cardiac activity noted. No abdominal tenderness. (STEPHANY CORONEL) Impression Primary Impression: Syncope Qualified Codes: R55 - Syncope and collapse Disposition: 01 HOME, SELF-CARE Condition: Stable Departure-Patient Inst. Referrals: [facility] [place] Primary Care Physician LATA SORIA (Family) Primary Care Physician Patient Instructions: Syncope (Fainting) (DC) GARY KEANE Feb 09, 2022 16:59 STEPHANY CORONEL Feb 09, 2022 19:32
[2022-02-09 17:56] LABS: ALBUMIN 3.4 GM/DL (3.2-4.5); POTASSIUM 3.3 MMOL/L (3.6-5.0)
[2022-02-09 17:57] LABS: CALCIUM 9.2 MG/DL (8.5-10.1)
[2022-02-09 18:00] LABS: BILIRUBIN,TOTAL 0.2 MG/DL (0.1-1.0)
[2022-02-09 18:02] LABS: CREATININE SERUM 0.67 MG/DL (0.60-1.30)
[2022-02-09] MEDS ORDERED: LACTATED RINGERS 1,000 ML IV STA (18:26)
[2022-02-09 18:29] LABS: BASOPHILS % (AUTO) 0 % (0-10); EOSINOPHILS # (AUTO) 0.1 10^3/uL (0.0-0.3); EOSINOPHILS % (AUTO) 1 % (0-10); HEMATOCRIT 36 % (35-52); HEMOGLOBIN 10.9 g/dL (11.5-16.0); LYMPHOCYTES # (AUTO) 1.4 10^3/uL (1.0-4.0); LYMPHOCYTES % (AUTO) 14 % (12-44); MEAN CORPUSCULAR HEMOGLOBIN 24 pg (25-34); MEAN CORPUSCULAR HGB CONC 31 g/dL (32-36); MEAN CORPUSCULAR VOLUME 77 fL (80-99); MEAN PLATELET VOLUME 10.4 fL (9.0-12.2); MONOCYTES # (AUTO) 0.5 10^3/uL (0.0-1.0); MONOCYTES % (AUTO) 5 % (0-12); NEUTROPHILS # (AUTO) 7.5 10^3/uL (1.8-7.8); NEUTROPHILS % (AUTO) 79 % (42-75); PLATELET COUNT 342 10^3/uL (130-400); WHITE BLOOD COUNT 9.5 10^3/uL (4.3-11.0)
[2022-02-09 18:31] VITALS: BP_SYST 119; BP_SYST 121; BP_SYST 123; BP_DIAS 65; BP_DIAS 66; BP_DIAS 74
[2022-02-09 18:47] LABS: BILIRUBIN,URINE NEGATIVE (NEGATIVE); CLARITY,URINE CLEAR; COLOR,URINE YELLOW; GLUCOSE, URINE (UA) NEGATIVE (NEGATIVE); KETONES,URINE NEGATIVE (NEGATIVE); LEUKOCYTE ESTERASE ,URINE NEGATIVE (NEGATIVE); NITRITE,URINE NEGATIVE (NEGATIVE); PROTEIN,URINE NEGATIVE (NEGATIVE)
[2022-02-09 19:20] LABS: BACTERIA,URINE FEW /HPF; HYALINE CASTS, URINE RARE /LPF; RBC,URINE 0-2 /HPF; WBC,URINE 0-2 /HPF
[2022-02-09 19:37] VITALS: BP 116/72
== END 2022-02-09 19:37 | disposition home or self-care (01) ==
LOC: EDUNIT# 16:43 → ER 16:45
DX: O26.812 Pregnancy related exhaustion and fatigue, second trimester (principal); Z3A.19 19 weeks gestation of pregnancy
CPT/HCPCS: 36415; 80053; 81000; 85025; 86141; 87088; 93005

== ENCOUNTER → 2022-02-23 | Outpatient (CLI) | payer MEDICAID ==
--- NOTE | 2022-02-23 14:48 | Diagnostic Imaging Report ---
INDICATION: survey. TECHNIQUE: Multiple real-time grayscale images were obtained over the gravid uterus. COMPARISON: None FINDINGS: There is a single live fetus in a breech presentation. heart rate was recorded at 147 bpm. Placenta is posterior and to the right. Amniotic fluid volume is normal. Cervical length is approximately 3.4 cm. survey shows kidneys, bladder and stomach to be unremarkable. brain is unremarkable. There is a four-chamber heart. There is a three-vessel cord with normal insertion. spine is unremarkable. Biometrical measurements are as follows: Biparietal 3.99 cm, age 18 weeks 1 days. Head circumference 15.88 cm, age 18 weeks 6 days. Abdominal circumference 12.63 cm, age 18 weeks 2 days. Femur length 3.06 cm, age 19 weeks 4 days. Sonographic estimate age: 18 weeks 5 days. Sonographic estimated date of delivery: 07/22/2022. Estimated Weight: 258 gm (+/- 38 gm). LMP percentile: 2%. heart rate: 147 beats per minute. number: 1 of 1. IMPRESSION: Single live IUP 18 weeks 5 days gestational age. Estimated date of confinement sonographically is 07/22/2022. Dictated by: Dictated on workstation # [id number]
== END ==
LOC: RAD 12:00
PROVIDERS: ATTEND Obstetrics & Gynecology
DX: Z36.9 Encounter for antenatal screening, unspecified (principal); Z3A.18 18 weeks gestation of pregnancy
CPT/HCPCS: 76805

== ENCOUNTER 2022-05-14 16:33 | Outpatient (CLI) | payer MEDICAID ==
[~2022-05-14 16:33] MED LIST changes: -EPINEPHrine INJECTION 1 MG/ML AMP IM PRN; -HYDROCORTISONE 100 MG/2 ML (Solu-CORTEF) VIAL IV PRN; -IRON DEXTRAN 1,000 MG/NS 250 ML IVPB IV ONE; -IRON DEXTRAN 25 MG/NS 6.25 ML TOTAL VOLUME IV ONE; -RT-ALBUTEROL SULF 2.5 MG/3 ML PRE-MIX VIAL IH PRN; -diphenhydrAMINE 50 MG/ML INJ (BENADRYL) IV PRN
[2022-05-14 17:06] VITALS: BP 114/63
--- NOTE | 2022-05-15 08:39 | Physician Query-Final Dx ---
CAMRON05/15/22 0839: Clinic Account Progress/Dx Physician Query: Please give diagnosis Please include # weeks gestation Date of Service May 14, 2022 at 16:33 YURIY CRUZ MD 05/15/22 0920: Clinic Account Progress/Dx DIAGNOSIS: Diagnosis Decreased movement at 29 weeks gestation CAMRON,NovMay 15, 2022 08:39 YURIY CRUZ MD May 15, 2022 09:20
== END 2022-05-14 17:10 | disposition home or self-care (01) ==
LOC: WSo 16:33 → LDRP 16:33 → WSo 17:10
PROVIDERS: ATTEND Obstetrics & Gynecology
DX: O36.8130 Decreased fetal movements, third trimester, not applicable or unspecified (principal); Z3A.29 29 weeks gestation of pregnancy
CPT/HCPCS: 59025

== ENCOUNTER → 2022-05-14 | Outpatient (CLI) | payer MEDICAID ==
[~2022-05-14] MED LIST changes: +EPINEPHrine INJECTION 1 MG/ML AMP IM PRN; +HYDROCORTISONE 100 MG/2 ML (Solu-CORTEF) VIAL IV PRN; +IRON DEXTRAN 1,000 MG/NS 250 ML IVPB IV ONE; +IRON DEXTRAN 25 MG/NS 6.25 ML TOTAL VOLUME IV ONE; +RT-ALBUTEROL SULF 2.5 MG/3 ML PRE-MIX VIAL IH PRN; +diphenhydrAMINE 50 MG/ML INJ (BENADRYL) IV PRN
[2022-05-14 15:09] VITALS: BP 114/77
== END ==
LOC: SDC 14:29
PROVIDERS: ATTEND Obstetrics & Gynecology
DX: D64.9 Anemia, unspecified (principal)
CPT/HCPCS: 96365

== ENCOUNTER 2022-06-19 07:47 | Outpatient (CLI) | payer MEDICAID ==
[~2022-06-19] VITALS: Ht 157 cm; Wt 98.7 kg
[2022-06-19 07:55] VITALS: BP 126/85
[2022-06-19 08:00] VITALS: BP 126/85
[2022-06-19 08:12] VITALS: BP 126/89
[2022-06-19 08:15] VITALS: BP 113/72
[2022-06-19 08:47] LABS: BILIRUBIN,URINE NEGATIVE (NEGATIVE); CLARITY,URINE CLEAR; COLOR,URINE YELLOW; GLUCOSE, URINE (UA) NEGATIVE (NEGATIVE); KETONES,URINE NEGATIVE (NEGATIVE); LEUKOCYTE ESTERASE ,URINE 1+ (NEGATIVE); NITRITE,URINE NEGATIVE (NEGATIVE); PROTEIN,URINE NEGATIVE (NEGATIVE)
[2022-06-19 08:55] LABS: BACTERIA,URINE MODERATE /HPF; CALCIUM OXALATE CRYSTALS,UR LARGE /LPF
[2022-06-19 09:26] VITALS: BP 113/72
--- NOTE | 2022-06-22 08:26 | Physician Query-Final Dx ---
,06/22/22 0826: Clinic Account Progress/Dx Physician Query: Please give diagnosis Please include # weeks gestation Date of Service Jun 19, 2022 at 07:47 ROSALIO MUJICA MD 06/22/22 1007: Clinic Account Progress/Dx DIAGNOSIS: Diagnosis @ 37 weeks and 5 days gestation - rule out labor dismissed home with precautions and routine OB follow-up CAMRON,NovJun 22, 2022 08:26 ROSALIO MUJICA MD Jun 22, 2022 10:07
== END 2022-06-19 09:31 | disposition home or self-care (01) ==
LOC: WSo 07:47 → LDRP 07:47 → WSo 09:31
PROVIDERS: ATTEND Obstetrics & Gynecology
DX: Z34.93 Encounter for supervision of normal pregnancy, unspecified, third trimester (principal); Z3A.37 37 weeks gestation of pregnancy
CPT/HCPCS: 81000; 87088

== ENCOUNTER 2022-06-22 04:22 | Outpatient (CLI) | payer MEDICAID ==
[~2022-06-22] VITALS: Ht 157.5 cm; Wt 97.2 kg
[2022-06-22 04:35] VITALS: BP 106/64
[2022-06-22 04:38] VITALS: BP 106/64
[2022-06-22 04:55] VITALS: BP 116/69
[2022-06-22 05:00] VITALS: BP 106/64
--- NOTE | 2022-06-23 08:41 | Physician Query-Final Dx ---
CAMRON,06/23/22 0841: Clinic Account Progress/Dx Physician Query: Please give diagnosis Please include # weeks gestation Date of Service Jun 22, 2022 at 04:22 PARIS GUERIN DO 06/23/22 1741: Clinic Account Progress/Dx DIAGNOSIS: Diagnosis 36 week IUP Irregular contractions CAMRON,NovJun 23, 2022 08:41 PARIS GUERIN DO Jun 23, 2022 17:41
== END 2022-06-22 05:03 | disposition home or self-care (01) ==
LOC: WSo 04:22 → LDRP 04:24 → WSo 05:03
PROVIDERS: ATTEND Obstetrics & Gynecology
DX: O62.9 Abnormality of forces of labor, unspecified (principal); Z3A.00 Weeks of gestation of pregnancy not specified
CPT/HCPCS: 99212

== ENCOUNTER 2022-07-01 11:18 | Outpatient (CLI) | payer MEDICAID ==
[2022-07-01 11:41] LABS: BILIRUBIN,URINE NEGATIVE (NEGATIVE); CLARITY,URINE CLEAR; COLOR,URINE YELLOW; GLUCOSE, URINE (UA) NEGATIVE (NEGATIVE); KETONES,URINE NEGATIVE (NEGATIVE); LEUKOCYTE ESTERASE ,URINE NEGATIVE (NEGATIVE); NITRITE,URINE NEGATIVE (NEGATIVE); PH,URINE 6.5 (5-9); PROTEIN,URINE TRACE (NEGATIVE)
[2022-07-01 11:45] VITALS: BP 118/69
[2022-07-01 11:46] VITALS: BP 118/69
[2022-07-01 11:50] LABS: BACTERIA,URINE TRACE /HPF; WBC,URINE 0-2 /HPF
[2022-07-01 12:00] VITALS: BP 120/76
[2022-07-01 12:15] VITALS: BP 120/76
[2022-07-01 12:30] VITALS: BP 109/69
--- NOTE | 2022-07-02 09:13 | Physician Query-Final Dx ---
Clinic Account Progress/Dx Physician Query: Please give diagnosis Please include # weeks gestation Date of Service Jul 01, 2022 at 11:18 CAMRON,NovJul 02, 2022 09:13
== END 2022-07-01 12:50 | disposition home or self-care (01) ==
LOC: WSo 11:18 → LDRP 11:19 → WSo 12:50
PROVIDERS: ATTEND Obstetrics & Gynecology
DX: O46.90 Antepartum hemorrhage, unspecified, unspecified trimester (principal); Z3A.00 Weeks of gestation of pregnancy not specified
CPT/HCPCS: 81000; 87088; G0463; 99213

== ENCOUNTER 2022-07-07 06:20 | Inpatient (IN) | payer MEDICAID ==
[2022-07-07] VITALS (21 sets, daily range): BP systolic 88–138; BP diastolic 49–85
[~2022-07-07] VITALS: Ht 157 cm; Wt 99.5 kg
[2022-07-07] MEDS ORDERED: OXYTOCIN PRE-MIX DRIP 500 ML IV SCH ×2 (06:45→11:45)
[2022-07-07] MEDS ORDERED: D5 LR IV SOLUTION 1,000 ML IV SCH (06:45)
[2022-07-07 06:58] LABS: BASOPHILS % (AUTO) 0 % (0-10); EOSINOPHILS # (AUTO) 0.1 10^3/uL (0.0-0.3); EOSINOPHILS % (AUTO) 2 % (0-10); HEMATOCRIT 41 % (35-52); LYMPHOCYTES # (AUTO) 1.3 10^3/uL (1.0-4.0); LYMPHOCYTES % (AUTO) 17 % (12-44); MEAN CORPUSCULAR HEMOGLOBIN 26 pg (25-34); MEAN CORPUSCULAR HGB CONC 32 g/dL (32-36); MEAN CORPUSCULAR VOLUME 82 fL (80-99); MEAN PLATELET VOLUME 10.6 fL (9.0-12.2); MONOCYTES # (AUTO) 0.5 10^3/uL (0.0-1.0); MONOCYTES % (AUTO) 6 % (0-12); NEUTROPHILS # (AUTO) 5.7 10^3/uL (1.8-7.8); NEUTROPHILS % (AUTO) 74 % (42-75); PLATELET COUNT 234 10^3/uL (130-400); WHITE BLOOD COUNT 7.8 10^3/uL (4.3-11.0)
[2022-07-07 07:09] LABS: BILIRUBIN,URINE NEGATIVE (NEGATIVE); CLARITY,URINE CLEAR; COLOR,URINE YELLOW; GLUCOSE, URINE (UA) NEGATIVE (NEGATIVE); KETONES,URINE NEGATIVE (NEGATIVE); LEUKOCYTE ESTERASE ,URINE 1+ (NEGATIVE); NITRITE,URINE NEGATIVE (NEGATIVE); PH,URINE 7.5 (5-9); PROTEIN,URINE NEGATIVE (NEGATIVE)
[2022-07-07 07:18] LABS: BACTERIA,URINE FEW /HPF
--- NOTE | 2022-07-07 08:05 | History & Physical-OB ---
LUPEKATELIN 07/07/22 0805: OB - Chief Complaint & HPI Date/Time Date of Admission: Date of Admission: Jul 07, 2022 at 06:20 Date seen by a Provider: Jul 07, 2022 Time Seen by a Provider: 08:05 Chief Complaint/History OB-Reason for Admission/Chief: Induction of Labor Expected Date of Delivery: Jul 08, 2022 Gestational Age in Weeks: 39 Gestational Age in Days: 6 History of Labs @ 39weeks 6 days A positive Antibody neg RI GBS neg Allergies and Home Medications Allergies Coded Allergies: Penicillins (Verified Allergy, Severe, Anaphylaxis, 07/25/21) Patient Home Medication List Home Medication List Reviewed: Yes No Active Prescriptions or Reported Meds OB - History Hx of Present Care: Yes Ultrasounds: Normal mid trimester US Obstetrical Complications: None Medical Complications: None Patient Past Medical History GDM Social History/Family History 2nd Hand Smoke Exposure: No Immunizations Influenza Vaccine Up-to-Date: No; Not Current Hepatitis A: No Hepatitis B: No Tetanus Booster (TDap): Unknown OB - Admission Exam Physical Exam Vitals: Vital Signs 07/07/22 06:50 Temp 37.1 Pulse 66 Resp 18 Pulse Ox 97 O2 Delivery Room Air HEENT: NCAT Abdomen: Gravid Extremities: Normal Reflexes: Normal Cervical Dilatation: 5cm Effacement: 75% Station: 0 Membranes: Ruptured Contractions on Admission: 6-10 Minutes Apart Intensity: Mild Wilson Scoring Tool (Modified) Dilation (cm): >5cm (3) Effacement (%): 51-79% (2) Descent/Station: -1,0 (2) Labs Laboratory Tests Test 07/07/22 06:30 07/07/22 06:45 Range/Units Urine Color YELLOW Urine Clarity CLEAR Urine pH 7.5 5-9 Urine Specific [place] 1.015 L 1.016-1.022 Urine Protein NEGATIVE NEGATIVE Urine Glucose (UA) NEGATIVE NEGATIVE Urine Ketones NEGATIVE NEGATIVE Urine Nitrite NEGATIVE NEGATIVE Urine Bilirubin NEGATIVE NEGATIVE Urine Urobilinogen 0.2 < = 1.0 MG/DL Urine Leukocyte Esterase 1+ H NEGATIVE Urine RBC (Auto) NEGATIVE NEGATIVE Urine RBC NONE /HPF Urine WBC 2-5 /HPF Urine Squamous Epithelial Cells 5-10 /HPF Urine Crystals NONE /LPF Urine Bacteria FEW H /HPF Urine Casts NONE /LPF Urine Mucus NEGATIVE /LPF Urine Culture Indicated YES White Blood Count 7.8 4.3-11.0 10^3/uL Red Blood Count 5.00 3.80-5.11 10^6/uL Hemoglobin 13.0 11.5-16.0 g/dL Hematocrit 41 35-52 % Mean Corpuscular Volume 82 80-99 fL Mean Corpuscular Hemoglobin 26 25-34 pg Mean Corpuscular Hemoglobin Concent 32 32-36 g/dL Red Cell Distribution Width 19.6 H 10.0-14.5 % Platelet Count 234 130-400 10^3/uL Mean Platelet Volume 10.6 9.0-12.2 fL Immature Granulocyte % (Auto) 0 % Neutrophils (%) (Auto) 74 42-75 % Lymphocytes (%) (Auto) 17 12-44 % Monocytes (%) (Auto) 6 0-12 % Eosinophils (%) (Auto) 2 0-10 % Basophils (%) (Auto) 0 0-10 % Neutrophils # (Auto) 5.7 1.8-7.8 10^3/uL Lymphocytes # (Auto) 1.3 1.0-4.0 10^3/uL Monocytes # (Auto) 0.5 0.0-1.0 10^3/uL Eosinophils # (Auto) 0.1 0.0-0.3 10^3/uL Basophils # (Auto) 0.0 0.0-0.1 10^3/uL Immature Granulocyte # (Auto) 0.0 0.0-0.1 10^3/uL OB - Assessment/Plan/Diagnosis Assessment Assessment: induction of labor Admission Dx 21 yo @ 39 weeks and 6 days Labor induction GBS neg Admission Status: Inpatient Order (span 2 midnights) Reason for Inpatient Admission: Induction of labor Plan Plan: Expectant Management, Induction Induction Method: per Pitocin Protocol TRUONGGHANSHYAM Pedro GARICA 07/07/22 0841: Allergies and Home Medications Allergies Coded Allergies: Penicillins (Verified Allergy, Severe, Anaphylaxis, 07/25/21) Patient Home Medication List No Active Prescriptions or Reported Meds OB - Assessment/Plan/Diagnosis Plan Other Plan Verification and Attestation of Medical Student E/M Service A medical student performed and documented this service in my presence. I reviewed and verified all information documented by the medical student and made modifications to such information, when appropriate. I personally performed the physical exam and medical decision making. Ghanshyam Navas, Jul 07, 2022,08:41 KATELIN ANDRADE Jul 07, 2022 08:05 GHANSHYAM NAVAS DO Jul 07, 2022 08:41
[2022-07-07] MEDS ORDERED: fentaNYL 2 mcg/ml BUPIVA 0.125 100 ML ONE (08:42)
[2022-07-07] MEDS ORDERED: LACTATED RINGERS 1,000 ML IV ONE (08:42)
[2022-07-07] MEDS ORDERED: fentaNYL INJ 100 MCG/2 ML AMP ONE ×2 (09:34→09:37)
[2022-07-07] MEDS ORDERED: BUPIVACAINE 0.25% 30 ML (SENSORCAINE) VIAL ONE (09:37)
[2022-07-07] MEDS ORDERED: fentaNYL 2 mcg/ml BUPIVA 0.125 100 ML EPI SCH (10:15)
[2022-07-07] MEDS ORDERED: METOCLOPRAMIDE INJ 10 MG/2 ML (REGLAN) IV PRN (10:15)
[2022-07-07] MEDS ORDERED: ONDANSETRON 4 MG/2 ML (SDV) Z0FRAN IV PRN (10:15)
[2022-07-07] MEDS ORDERED: diphenhydrAMINE 50 MG/ML INJ (BENADRYL) IV PRN (10:15)
[2022-07-07] MEDS ORDERED: NALOXONE 0.4 MG/ML 1 ML (NARCAN) VIAL IV PRN ×3 (10:15→11:45)
[2022-07-07] MEDS ORDERED: LACTATED RINGERS 1,000 ML IV SCH (10:15)
[2022-07-07] MEDS ORDERED: WITCH HAZEL(TUCKS) 40 EA JAR TOP PRN (11:45)
[2022-07-07] MEDS ORDERED: TETANUS,DIPTH,PERTUSS P/F (BOOSTRIX) 0.5 ML VIAL IM ONE (11:45)
[2022-07-07] MEDS ORDERED: MEASLES,MUMPS,RUBELLA 1 EA INJ SQ ONE (11:45)
[2022-07-07] MEDS ORDERED: DIBUCAINE 1% OINTMENT 30 GM TUBE TOP PRN (11:45)
[2022-07-07] MEDS ORDERED: BENZOCAINE/MENTHOL (DERMOPLAST) 56 ML CAN TP PRN (11:45)
--- NOTE | 2022-07-07 11:46 | OB Labor & Delivery Record ---
L&D History Date of Service Date of Service: Jul 07, 2022 History Expected Date of Delivery: Jul 08, 2022 Gestational Age in Weeks: 39 Complications Events: Routine care Operative Indications (Cesarea: N/A-Vaginal Delivery Intrapartal Events: None L&D Stage1 Stage One Onset of Labor - Date: Jul 07, 2022 Monitors and Tracing Monitor Mode: External Heart Rate: 140 Monitor Accelerations: Uniform Monitor Decelerations: None Station: 0 Tape Transferrer Variability: Average (6-10) Short Term Variability: Present Presentation: Vertex Vital Signs VS - Last 72 Hours, by Label 07/07/22 07/07/22 07/07/22 07/07/22 06:50 08:03 08:16 08:30 Temp 37.1 36.9 36.9 Pulse 66 79 70 67 Resp 18 18 18 18 B/P (MAP) 113/77 (89) 126/85 (99) 134/76 (95) Pulse Ox 97 98 98 98 O2 Delivery Room Air Room Air Room Air Room Air 07/07/22 07/07/22 07/07/22 07/07/22 08:45 09:50 09:55 10:00 Pulse 67 80 81 100 Resp 18 18 18 18 B/P (MAP) 134/76 (95) 110/60 (77) 128/73 (91) 128/73 (91) Pulse Ox 98 98 96 96 O2 Delivery Room Air 07/07/22 07/07/22 07/07/22 07/07/22 10:05 10:10 10:15 10:20 Pulse 95 75 81 73 Resp 18 18 18 18 B/P (MAP) 94/53 (67) 138/57 (84) 116/72 (87) 109/61 (77) Pulse Ox 96 97 97 97 07/07/22 07/07/22 07/07/22 07/07/22 10:25 10:30 10:45 11:00 Temp 36.9 36.6 Pulse 81 73 69 65 Resp 18 18 18 18 B/P (MAP) 116/72 (87) 109/61 (77) 101/62 (75) 88/49 (62) Pulse Ox 97 97 98 98 O2 Delivery Room Air Room Air Room Air Rupture of Membranes Spontaneous Ruture of Membrane: No Amniotic Membrane Rupture Time: 0816 Amniotic Membrane Fluid Desc.: Clear Vaginal Bleeding Description: Normal Show Induction/Anesthesia Epidural Cath Placement - Time: 932 Progress/Notes Patient admitted for elective IOL. AROM performed this AM followed by pitocin augmentation. She received an epidural and progressed to complete and + 2 station. L&D Stage2 Stage Two Stage II Date: Jul 07, 2022 Monitors and Tracing Monitor Mode: External Heart Rate: 140 Monitor Accelerations: Uniform Monitor Decelerations: Variable Long-Term Variability: Average (6-10) Position: Right Occiput Anterior Presentation: Vertex Cord Descript/Complications Cord Vessel Description: 3 Vessels Delivery Type Delivery Method: Spontaneous Vaginal Anterior Shoulder: Left Episiotomy/Perineal Laceration Laceraction(s)/Extensions: Yes Episiotomy Description: Vaginal Extension/lac, 1st degree Degree (describe repair) laceration repaired using 3-0 rapide vicryl in usual fashion Condition of Delivery 1 minute Comment: 8 5 minute Comment: 9 Notes Live male infant weight 6lbs 14 oz Condition of Infant Condition of Infant: Living Exam: No Observed Abnormalities Resuscitation Resuscitation: N/A - Spontaneous Resp L&D Stage3 Stage Three Stage III Date: Jul 07, 2022 Pictocin Pitocin Administration mu/min: 2 Pitocin ml/hr: 2 Pitocin Administration Comment: 30 mu wide open after delivery of placenta Placenta Delivery Placenta Delivery: Spontaneous Delivery Summary Summary Estimated blood loss (mL): 300 Attending at delivery: Paris Guerin DO Condition of Delivery Examined: Cervix Examined, Uterus Explored Post Hemorrhage: No Condition of Mother stable Condition of (s) stable PARIS GUERIN DO Jul 07, 2022 11:46
--- NOTE | 2022-07-07 11:48 | Discharge Inst-Women's Service ---
Discharge Inst-Women's Serv Depart Medication/Instructions New, Converted or Re-Newed RX: Transmitted to Pharmacy Final Diagnosis PPD 1 NVD Problems Reviewed?: Yes Consults/Follow Up Additional Follow Up: Yes Orders/Referrals Dr. Guerin in 6 weeks Activity Activity: Activity as Tolerated Driving Instructions: No Driving for 1 Week NO SMOKING: NO SMOKING Nothing Inside Vagina: No Douching, No [place], No Tampons Diet Discharge Diet: No Restrictions Symptoms to Report to : Bleeding Excessive, Pain Increased, Fever Over 101 Degrees F, Vaginal Bleeding Increase, Questions/Concerns PARIS GUERIN DO Jul 07, 2022 11:48
[2022-07-07] MEDS ORDERED: DIBU30OI TOP (11:50)
[2022-07-07] MEDS ORDERED: FERR325T24 PO (11:50)
[2022-07-07] MEDS ORDERED: DOCU100C37 PO (11:50)
[2022-07-07] MEDS ORDERED: IBUP-844 PO (11:50)
[2022-07-07] MEDS ORDERED: ACET-93 PO (11:50)
[2022-07-07] MEDS ORDERED: BENZ78AE5 TP (11:50)
[2022-07-07] MEDS: ACETAMINOPHEN 500 MG TAB (TYLENOL) PO SCH ×2 (12:26→18:29)
[2022-07-07] MEDS: IBUPROFEN 600 MG (MOTRIN) TAB PO SCH ×2 (12:26→18:29)
[2022-07-07] MEDS ORDERED: CATHETER FLUSH 10 ML SYR IV SCH ×2 (14:00)
[2022-07-07] MEDS: DOCUSATE SODIUM 100 MG (COLACE) CAP PO SCH (20:34)
[2022-07-08 00:21] VITALS: BP 111/80
[2022-07-08] MEDS: IBUPROFEN 600 MG (MOTRIN) TAB PO SCH ×3 (00:22→11:54)
[2022-07-08] MEDS: ACETAMINOPHEN 500 MG TAB (TYLENOL) PO SCH ×3 (00:22→11:54)
[2022-07-08 04:30] VITALS: BP 119/79
[2022-07-08 06:10] LABS: BASOPHILS % (AUTO) 0 % (0-10); EOSINOPHILS # (AUTO) 0.2 10^3/uL (0.0-0.3); EOSINOPHILS % (AUTO) 2 % (0-10); HEMATOCRIT 38 % (35-52); LYMPHOCYTES # (AUTO) 1.6 10^3/uL (1.0-4.0); LYMPHOCYTES % (AUTO) 20 % (12-44); MEAN CORPUSCULAR HEMOGLOBIN 26 pg (25-34); MEAN CORPUSCULAR HGB CONC 31 g/dL (32-36); MEAN CORPUSCULAR VOLUME 83 fL (80-99); MEAN PLATELET VOLUME 11.3 fL (9.0-12.2); MONOCYTES # (AUTO) 0.5 10^3/uL (0.0-1.0); MONOCYTES % (AUTO) 6 % (0-12); NEUTROPHILS # (AUTO) 5.7 10^3/uL (1.8-7.8); NEUTROPHILS % (AUTO) 72 % (42-75); PLATELET COUNT 166 10^3/uL (130-400)
--- NOTE | 2022-07-08 07:26 | Postpartum Progress Note ---
YANNAPETTYKATELIN Harper 07/08/22 0726: Note Note Day # 1 Subjective: Patient is without complaints. Ambulating, voiding. Tolerating a regular diet without nausea or vomiting. Normal lochia. Pain is well controlled with oral pain medications. Pt has attempted to breast feed but was unable to get the baby to latch yesterday. Will try again this morning. Objective: VSS Afebrile Physical Exam: General - Alert and oriented, no apparent distress Abdomen - Soft, appropriately tender to palpation, non-distended, fundus firm at umbilicus Extremities - no edema, negative Alexei's bilaterally Assessment: post- day # 1, status post normal vaginal delivery. Recovering well, hemodynamically stable Plan: Routine care. Encourage breast feeding. Encourage ambulation. Ferrous sulfate supplementation. Plan for discharge today Vitals - Labs Vital Signs - I&O Vital Signs Date Time Temp Pulse Resp B/P (MAP) Pulse Ox O2 Delivery O2 Flow Rate FiO2 07/08/22 04:30 36.3 60 18 119/79 (92) 98 Room Air 07/08/22 00:21 36.5 69 18 111/80 (90) 98 Room Air 07/07/22 20:34 36.2 63 18 108/58 (75) 97 Room Air 07/07/22 19:07 36.8 87 18 128/78 (95) 99 Room Air 07/07/22 13:58 59 18 107/61 (76) 98 Room Air 07/07/22 13:20 36.9 59 18 104/62 (76) 98 Room Air 07/07/22 11:45 36.5 77 18 102/54 (70) 97 Room Air 07/07/22 11:00 36.6 65 18 88/49 (62) 98 Room Air 07/07/22 10:45 69 18 101/62 (75) 98 Room Air 07/07/22 10:30 36.9 73 18 109/61 (77) 97 Room Air 07/07/22 10:25 81 18 116/72 (87) 97 07/07/22 10:20 73 18 109/61 (77) 97 07/07/22 10:15 81 18 116/72 (87) 97 07/07/22 10:10 75 18 138/57 (84) 97 07/07/22 10:05 95 18 94/53 (67) 96 07/07/22 10:00 100 18 128/73 (91) 96 07/07/22 09:55 81 18 128/73 (91) 96 07/07/22 09:50 80 18 110/60 (77) 98 07/07/22 08:45 67 18 134/76 (95) 98 Room Air 07/07/22 08:30 36.9 67 18 134/76 (95) 98 Room Air 07/07/22 08:16 70 18 126/85 (99) 98 Room Air 07/07/22 08:03 36.9 79 18 113/77 (89) 98 Room Air I & O 07/08/22 07:00 Intake Total 2250 ml Balance 2250 ml Labs Laboratory Tests 07/08/22 06:03: White Blood Count 8.0, Red Blood Count 4.61, Hemoglobin 12.0, Hematocrit 38, Mean Corpuscular Volume 83, Mean Corpuscular Hemoglobin 26, Mean Corpuscular Hemoglobin Concent 31L, Red Cell Distribution Width 19.5H, Platelet Count 166, Mean Platelet Volume 11.3, Immature Granulocyte % (Auto) 0, Neutrophils (%) (Auto) 72, Lymphocytes (%) (Auto) 20, Monocytes (%) (Auto) 6, Eosinophils (%) (Auto) 2, Basophils (%) (Auto) 0, Neutrophils # (Auto) 5.7, Lymphocytes # (Auto) 1.6, Monocytes # (Auto) 0.5, Eosinophils # (Auto) 0.2, Basophils # (Auto) 0.0, Immature Granulocyte # (Auto) 0.0 GHANSHYAM GUERIN DO 07/08/22 1318: Note Note Verification and Attestation of Medical Student E/M Service A medical student performed and documented this service in my presence. I reviewed and verified all information documented by the medical student and made modifications to such information, when appropriate. I personally performed the physical exam and medical decision making. Ghanshyam Guerin Jul 08, 2022,13:18 KATELIN ANDRADE Jul 08, 2022 07:26 GHANSHYAM GUERIN DO Jul 08, 2022 13:18
[2022-07-08] MEDS ORDERED: FERROUS SULF 325 MG (IRON) TAB PO SCH (09:00)
[2022-07-08 09:15] VITALS: BP 109/62
[2022-07-08] MEDS: DOCUSATE SODIUM 100 MG (COLACE) CAP PO SCH (09:18)
[2022-07-08 12:00] VITALS: BP 118/71
--- NOTE | 2022-07-08 12:53 | Anesthesia-Regional Post-Op ---
Regional Patient Condition Mental Status: Alert, Oriented x3 Circulation: Same as Pre-Op Headache: Absent Sensation: Full Recovery Motor Block: Absent Post Op Complications Complications None Follow Up Care/Instructions Patient Instructions None needed. Anesthesia/Patient Condition Patient is doing well, no complaints, stable vital signs, no apparent adverse anesthesia problems. No complications reported per nursing. GAIL MARTELL CRNA Jul 08, 2022 12:53
== END 2022-07-08 15:30 | disposition home or self-care (01) | DRG 807 ==
LOC: LDRP 06:20
PROVIDERS: ADMIT Obstetrics & Gynecology; ATTEND Obstetrics & Gynecology
PROC: 10E0XZZ Delivery of Products of Conception, External Approach (ICD-10-PCS; principal; 2022-07-07)
PROC: 10907ZC Drainage of Amniotic Fluid, Therapeutic from Products of Conception, Via Natural or Artificial Opening (ICD-10-PCS; 2022-07-07)
PROC: 0HQ9XZZ Repair Perineum Skin, External Approach (ICD-10-PCS; 2022-07-07)
DX: O70.0 First degree perineal laceration during delivery (principal); Z37.0 Single live birth; Z3A.39 39 weeks gestation of pregnancy
CPT/HCPCS: 36415; 81000; 85025; 86850; 86900; 86901; 87088

== ENCOUNTER → 2022-09-11 | Outpatient (CLI) | payer MEDICAID ==
[~2022-09-11] MED LIST changes: +ACET-93 PO; +BENZ78AE5 TP; +DOCU100C37 PO
--- NOTE | 2022-09-11 15:08 | Diagnostic Imaging Report ---
MRI brain without contrast Indication:Dizziness and headaches. Comparison:None available. Technique: Multiplanar, multisequence MRI of the brain was performed without contrast. Findings: There is no diffusion restriction present to suggest acute ischemia. There is no MR evidence of intracranial hemorrhage. There is no intracranial mass effect demonstrated. There is no abnormal extra-axial collection. Jo and white matter signal characteristics appear within normal limits. The ventricular system is appropriate in size and configuration. The basilar cisterns are patent. There are no findings of a migrational anomaly. There is no cortical thickening. Hippocampal formations are unremarkable. Posterior fossa is unremarkable. There is normal alignment of the craniocervical junction. Pituitary gland is unremarkable. The pineal region appears normal. No orbital abnormality evident on this nondedicated exam. The paranasal sinuses and mastoid air cells are clear. Expected arterial and dural venous sinus flow voids are preserved. Impression: No MR evidence of an acute intracranial abnormality. There is no evidence of ischemia, hemorrhage, parenchymal signal abnormality, intracranial mass effect, or hydrocephalus. Dictated by: Dictated on workstation # [id number]
== END ==
LOC: RAD 13:53
DX: G44.89 Other headache syndrome (principal); R42 Dizziness and giddiness
CPT/HCPCS: 70551

== ENCOUNTER → 2023-09-22 | Outpatient (CLI) | payer MEDICAID ==
[2023-09-22 16:08] LABS: BASOPHILS # (AUTO) 0.1 10^3/uL (0.0-0.1); BASOPHILS % (AUTO) 1 % (0-10); EOSINOPHILS # (AUTO) 0.3 10^3/uL (0.0-0.3); EOSINOPHILS % (AUTO) 4 % (0-10); HEMATOCRIT 43 % (35-52); LYMPHOCYTES # (AUTO) 2.8 10^3/uL (1.0-4.0); LYMPHOCYTES % (AUTO) 33 % (12-44); MEAN CORPUSCULAR HEMOGLOBIN 28 pg (25-34); MEAN CORPUSCULAR HGB CONC 33 g/dL (32-36); MEAN CORPUSCULAR VOLUME 86 fL (80-99); MEAN PLATELET VOLUME 10.2 fL (9.0-12.2); MONOCYTES # (AUTO) 0.5 10^3/uL (0.0-1.0); MONOCYTES % (AUTO) 6 % (0-12); NEUTROPHILS # (AUTO) 4.8 10^3/uL (1.8-7.8); NEUTROPHILS % (AUTO) 57 % (42-75); PLATELET COUNT 402 10^3/uL (130-400); WHITE BLOOD COUNT 8.4 10^3/uL (4.3-11.0)
== END ==
LOC: LAB 15:45
PROVIDERS: ATTEND Surgery
DX: R59.0 Localized enlarged lymph nodes (principal)
CPT/HCPCS: 36415; 85025; 86611